=== PATIENT | male | born 1960 | race Caucasian/White ===

== ENCOUNTER → 2020-01-10 09:27 | Outpatient (BNVA) | payer MEDICARE, SELFPAY | PROVIDERS: PCP Family Medicine; Visit Provider Internal Medicine Rheumatology | DX: M05.79 Rheumatoid arthritis with rheumatoid factor of multiple sites without organ or systems involvement (principal); Z79.899 Other long term (current) drug therapy; Z11.59 Encounter for screening for other viral diseases; Z11.1 Encounter for screening for respiratory tuberculosis; E11.65 Type 2 diabetes mellitus with hyperglycemia; R64 Cachexia; F17.210 Nicotine dependence, cigarettes, uncomplicated; Z79.1 Long term (current) use of non-steroidal anti-inflammatories (NSAID); M06.9 Rheumatoid arthritis, unspecified | CPT/HCPCS: 36415; 71046; 73130; 73630; 80076; 82565; 85025; 85651; 86140; 86431; 86480; 86704; 99204 ==

== ENCOUNTER 2020-01-10 11:04 | Outpatient (CLI) | payer MEDICARE, SELFPAY ==
--- NOTE | 2020-01-10 11:27 | XR_ITS ---
WS: [id number] Right foot, 3 views, 01/10/2020 Clinical Data: rheumatoid arthritis Comparison: None. Findings: No fractures or dislocations are seen. No bone destruction or erosion is noted. The joint spaces and soft tissues are normal. No periarticular demineralization or calcifications are seen. XR/XR foot RT min 3V* [id number] Impression: Negative right foot.
--- NOTE | 2020-01-10 11:27 | XR_ITS ---
WS: [id number] PA and lateral chest, 01/10/2020 Clinical Data: rheumatoid arthritis Comparison: None. Findings: No nodules, masses or effusions are seen. The diaphragms are flattened. The heart is normal . The pulmonary vascularity is not remarkable. No pneumonia or pneumothorax is seen. XR/XR chest 2V* [id number] Impression: Hyperinflation.
--- NOTE | 2020-01-10 11:27 | XR_ITS ---
WS: [id number] Right hand, 3 views, 01/10/2020 Clinical Data: rheumatoid arthritis Comparison: None. Findings: No fractures or dislocations are seen. The soft tissues are unremarkable. The joint space s are normal No periarticular demineralization or calcifications are seen. XR/XR hand RT min 3V* [id number] Impression: Negative right hand.
--- NOTE | 2020-01-10 11:27 | XR_ITS ---
WS: [id number] Left foot, 3 views, 01/10/2020 Clinical Data: rheumatoid arthritis Comparison: None. Findings: No fractures or dislocations are seen. No bone destruction or erosion is noted. The joint spaces and soft tissues are normal. There is a bunion at the head of the left first metatarsal. There is no periarticular demineralizatio n or calcifications. XR/XR foot LT min 3V* [id number] Impression: Small bunion at the head of the left first metatarsal.
--- NOTE | 2020-01-10 11:27 | XR_ITS ---
WS: [id number] Left hand, 01/10/2020 Clinical Data: rheumatoid arthritis Comparison: None. Findings: No fractures or dislocations are seen. The soft tissues are unremarkable. The joint spaces are normal There is slight flexion deformity at the left fifth PIP joint. No periarticular demineralization or c alcifications are seen. XR/XR hand LT min 3V* [id number] Impression: Negative left hand.
== END 2020-01-10 11:05 | disposition home or self-care (01) ==
LOC: RADWPI 11:07
PROVIDERS: PCP Family Medicine; Visit Provider Internal Medicine Rheumatology
DX: M06.9 Rheumatoid arthritis, unspecified (principal); M21.612 Bunion of left foot; Z11.59 Encounter for screening for other viral diseases; Z79.899 Other long term (current) drug therapy
CPT/HCPCS: 71046; 73130; 73630; 80076; 82565; 85025; 85651; 86140; 86431; 86480; 86704

== ENCOUNTER → 2020-07-01 13:58 | Outpatient (BNVA) | payer OTHER, MEDICAID, SELFPAY | PROVIDERS: PCP Family Medicine; Visit Provider Internal Medicine Rheumatology | DX: M05.79 Rheumatoid arthritis with rheumatoid factor of multiple sites without organ or systems involvement (principal); Z79.899 Other long term (current) drug therapy; R64 Cachexia; E11.65 Type 2 diabetes mellitus with hyperglycemia; Z79.1 Long term (current) use of non-steroidal anti-inflammatories (NSAID); F17.210 Nicotine dependence, cigarettes, uncomplicated; Z68.1 Body mass index [BMI] 19.9 or less, adult | CPT/HCPCS: 99214 ==

== ENCOUNTER → 2020-11-05 15:09 | Outpatient (BNVA) | payer MEDICARE, MEDICAID, SELFPAY | PROVIDERS: PCP Family Medicine; Visit Provider Internal Medicine Rheumatology | DX: M05.79 Rheumatoid arthritis with rheumatoid factor of multiple sites without organ or systems involvement (principal); Z79.899 Other long term (current) drug therapy; Z79.1 Long term (current) use of non-steroidal anti-inflammatories (NSAID); R64 Cachexia; Z68.1 Body mass index [BMI] 19.9 or less, adult; E11.65 Type 2 diabetes mellitus with hyperglycemia; Z79.4 Long term (current) use of insulin; Z71.89 Other specified counseling; F17.200 Nicotine dependence, unspecified, uncomplicated | CPT/HCPCS: 99214 ==

== ENCOUNTER → 2020-12-30 14:46 | Outpatient (BNVA) | payer MEDICARE, MEDICAID, SELFPAY | PROVIDERS: PCP Family Medicine; Visit Provider Internal Medicine Rheumatology | DX: M05.79 Rheumatoid arthritis with rheumatoid factor of multiple sites without organ or systems involvement (principal); Z79.899 Other long term (current) drug therapy | CPT/HCPCS: 80076; 82565; 85025; 86140 ==

== ENCOUNTER → 2021-01-27 14:14 | Outpatient (BNVA) | payer MEDICARE, MEDICAID, SELFPAY | PROVIDERS: PCP Family Medicine; Visit Provider Internal Medicine Rheumatology | DX: M05.79 Rheumatoid arthritis with rheumatoid factor of multiple sites without organ or systems involvement (principal); Z79.899 Other long term (current) drug therapy; Z79.52 Long term (current) use of systemic steroids; E11.65 Type 2 diabetes mellitus with hyperglycemia; Z79.4 Long term (current) use of insulin; R64 Cachexia; Z68.1 Body mass index [BMI] 19.9 or less, adult; Z71.89 Other specified counseling; F17.200 Nicotine dependence, unspecified, uncomplicated | CPT/HCPCS: 99214 ==

== ENCOUNTER → 2021-05-13 09:45 | Outpatient (BNVA) | payer MEDICARE, MEDICAID, SELFPAY | PROVIDERS: PCP Family Medicine; Visit Provider Internal Medicine Rheumatology | DX: M05.79 Rheumatoid arthritis with rheumatoid factor of multiple sites without organ or systems involvement (principal); Z79.899 Other long term (current) drug therapy; Z79.1 Long term (current) use of non-steroidal anti-inflammatories (NSAID); R64 Cachexia; Z68.1 Body mass index [BMI] 19.9 or less, adult; E11.9 Type 2 diabetes mellitus without complications; Z79.4 Long term (current) use of insulin; Z71.89 Other specified counseling; F17.210 Nicotine dependence, cigarettes, uncomplicated | CPT/HCPCS: 99214 ==

== ENCOUNTER → 2021-10-29 14:26 | Outpatient (BNVA) | payer MEDICARE, MEDICAID, SELFPAY | PROVIDERS: PCP Family Medicine; Visit Provider Internal Medicine Rheumatology | DX: M05.79 Rheumatoid arthritis with rheumatoid factor of multiple sites without organ or systems involvement (principal); Z79.899 Other long term (current) drug therapy; Z71.89 Other specified counseling; E11.65 Type 2 diabetes mellitus with hyperglycemia; R64 Cachexia; Z79.4 Long term (current) use of insulin; Z68.1 Body mass index [BMI] 19.9 or less, adult; Z79.1 Long term (current) use of non-steroidal anti-inflammatories (NSAID); F17.200 Nicotine dependence, unspecified, uncomplicated | CPT/HCPCS: 99214 ==

== ENCOUNTER → 2022-01-27 14:25 | Outpatient (BNVA) | payer MEDICARE, MEDICAID, SELFPAY | PROVIDERS: PCP Family Medicine; Visit Provider Internal Medicine Rheumatology | DX: M05.79 Rheumatoid arthritis with rheumatoid factor of multiple sites without organ or systems involvement (principal); Z79.899 Other long term (current) drug therapy; Z71.89 Other specified counseling; F17.200 Nicotine dependence, unspecified, uncomplicated; E11.9 Type 2 diabetes mellitus without complications; Z79.4 Long term (current) use of insulin; R64 Cachexia; Z68.1 Body mass index [BMI] 19.9 or less, adult; Z79.1 Long term (current) use of non-steroidal anti-inflammatories (NSAID) | CPT/HCPCS: 99214 ==

== ENCOUNTER → 2022-04-20 14:09 | Outpatient (BNVA) | payer MEDICARE, MEDICAID, SELFPAY | PROVIDERS: PCP Family Medicine; Visit Provider Internal Medicine Rheumatology | DX: M05.79 Rheumatoid arthritis with rheumatoid factor of multiple sites without organ or systems involvement (principal); Z79.899 Other long term (current) drug therapy; Z71.89 Other specified counseling; R64 Cachexia; E11.8 Type 2 diabetes mellitus with unspecified complications; Z79.4 Long term (current) use of insulin; Z72.0 Tobacco use | CPT/HCPCS: 99214 ==

== ENCOUNTER → 2022-07-20 14:19 | Outpatient (BNVA) | payer MEDICARE, MEDICAID, SELFPAY | PROVIDERS: PCP Family Medicine; Visit Provider Internal Medicine Rheumatology | DX: M05.79 Rheumatoid arthritis with rheumatoid factor of multiple sites without organ or systems involvement (principal); Z79.899 Other long term (current) drug therapy; Z71.89 Other specified counseling; R64 Cachexia; E11.8 Type 2 diabetes mellitus with unspecified complications; Z79.4 Long term (current) use of insulin; Z87.891 Personal history of nicotine dependence | CPT/HCPCS: 99214 ==

== ENCOUNTER → 2022-10-15 12:45 | Outpatient (BNVA) | payer MEDICARE, MEDICAID, SELFPAY | PROVIDERS: PCP Family Medicine; Visit Provider Internal Medicine Rheumatology | DX: M05.79 Rheumatoid arthritis with rheumatoid factor of multiple sites without organ or systems involvement (principal); Z79.899 Other long term (current) drug therapy; Z71.89 Other specified counseling; R64 Cachexia; Z68.1 Body mass index [BMI] 19.9 or less, adult; F17.200 Nicotine dependence, unspecified, uncomplicated; E11.9 Type 2 diabetes mellitus without complications; Z79.4 Long term (current) use of insulin; Z79.1 Long term (current) use of non-steroidal anti-inflammatories (NSAID) | CPT/HCPCS: 73502; 99214 ==

== ENCOUNTER → 2023-01-14 13:48 | Outpatient (BNVA) | payer MEDICARE, MEDICAID, SELFPAY | PROVIDERS: PCP Family Medicine; Visit Provider Internal Medicine Rheumatology | DX: Z79.899 Other long term (current) drug therapy (principal); M05.79 Rheumatoid arthritis with rheumatoid factor of multiple sites without organ or systems involvement; Z71.89 Other specified counseling; R64 Cachexia | CPT/HCPCS: 99214 ==

== ENCOUNTER → 2023-10-04 13:51 | Outpatient (BNVA) | payer MEDICARE, MEDICAID, SELFPAY | PROVIDERS: PCP Family Medicine; Visit Provider Internal Medicine Rheumatology | DX: M05.79 Rheumatoid arthritis with rheumatoid factor of multiple sites without organ or systems involvement (principal); Z79.899 Other long term (current) drug therapy; Z71.85 Encounter for immunization safety counseling; R64 Cachexia; E11.8 Type 2 diabetes mellitus with unspecified complications; Z88.2 Allergy status to sulfonamides; Z72.0 Tobacco use; Z68.1 Body mass index [BMI] 19.9 or less, adult | CPT/HCPCS: 99214 ==

== ENCOUNTER → 2024-03-16 14:37 | Outpatient (BNVA) | payer MEDICAID, MEDICARE, SELFPAY | PROVIDERS: PCP Family Medicine; Visit Provider Internal Medicine Rheumatology | DX: Z79.899 Other long term (current) drug therapy (principal); M05.79 Rheumatoid arthritis with rheumatoid factor of multiple sites without organ or systems involvement; Z71.89 Other specified counseling; R64 Cachexia | CPT/HCPCS: 99214 ==

== ENCOUNTER 2024-08-03 19:36 | Inpatient (IN) | payer MEDICARE, MEDICAID, SELFPAY ==
[2024-08-03 19:47] VITALS: BP 121/57; PULSE 104; RESP 16; TEMP 36.8; O2SAT 97; BMI 14.8
--- NOTE | 2024-08-03 20:04 | CTR_ITS ---
PROCEDURE INFORMATION: Exam: CTA Head With Contrast, Arteriography Exam date and time: 08/03/2024 8:06 PM Age: 64 years old Clinical indication: Stroke-like symptoms; Lt upper extremity and lt lower extremity weakness; Additional info: Left arm/leg weakness/paresthesia TECHNIQUE: Imaging protocol: Computed tomographic angiography of the head with contrast. Exam focused on the arteries. Computed tomographic angiography of the head with contrast. Exam focused on the arteries. AI vessel analysis not performed. 3D rendering (Not supervised by radiologist): MIP and/or 3D reconstructed images were created by the technologist. Radiation optimization: All CT scans at this facility use at least one of these dose optimization techniques: automated exposure control; mA and/or kV adjustment per patient size (includes targeted exams where dose is matched to clinical indication); or iterative reconstruction. Contrast material: OMNI 350; Contrast volume: 100 ml; Contrast route: INTRAVENOUS (IV); COMPARISON: CT head thrombolytic [id number] 08/03/2024 8:06 PM RADIATION DOSE METRICS: Total DLP (mGy-cm): 339.3 FINDINGS: ANTERIOR CIRCULATION: Right internal carotid artery: Atherosclerotic changes right internal carotid artery with mild stenosis. Right middle cerebral artery: No occlusion or significant stenosis. No aneurysm. Right anterior cerebral artery: No occlusion or significant stenosis. No aneurysm. Left internal carotid artery: Atherosclerotic changes left internal carotid artery with mild stenosis. Left middle cerebral artery: No occlusion or significant stenosis. No aneurysm. Left anterior cerebral artery: No occlusion or significant stenosis. No aneurysm. POSTERIOR CIRCULATION: Right vertebral artery: No occlusion or significant stenosis. No aneurysm. Left vertebral artery: No occlusion or significant stenosis. No aneurysm. Basilar artery: No occlusion or significant stenosis. No aneurysm. Right posterior cerebral artery: No occlusion or significant stenosis. No aneurysm. Left posterior cerebral artery: No occlusion or significant stenosis. No aneurysm. Right posterior communicating artery: There is a 2 mm infundibulum or small aneurysm of the right PCOM origin on series 6, image 247. Brain: No definite mass, mass effect, or midline shift. Cerebral ventricles: No ventriculomegaly. Paranasal sinuses: Owjey-[id number]-dyul-left maxillary sinus opacification present. Bones/joints: No acute fracture. Soft tissues: Unremarkable. PROCEDURE INFORMATION: Exam: CTA Neck With Contrast Exam date and time: 08/03/2024 8:06 PM Age: 64 years old Clinical indication: Stroke-like symptoms; Lt upper extremity and lt lower extremity weakness; Additional info: Left arm/leg weakness/paresthesia TECHNIQUE: Imaging protocol: Computed tomographic angiography of the neck with contrast. Exam focused on the cervical segments of the vasculature. 3D rendering (Not supervised by radiologist): MIP and/or 3D reconstructed images were created by the technologist. Radiation optimization: All CT scans at this facility use at least one of these dose optimization techniques: automated exposure control; mA and/or kV adjustment per patient size (includes targeted exams where dose is matched to clinical indication); or iterative reconstruction. Contrast material: OMNI 350; Contrast volume: 100 ml; Contrast route: INTRAVENOUS (IV); COMPARISON: CT head thrombolytic [id number] 08/03/2024 8:06 PM RADIATION DOSE METRICS: Total DLP (mGy-cm): 339.3 FINDINGS: Right common carotid artery: Mild stenosis distal right common carotid artery. Right internal carotid artery: No stenosis of the extracranial segment. No dissection or occlusion. Right external carotid artery: No visible occlusion. Left common carotid artery: Mild stenosis distal left common carotid artery. Left internal carotid artery: No stenosis of the extracranial segment. No dissection or occlusion. Left external carotid artery: No visible occlusion. Right vertebral artery: No stenosis. No dissection or occlusion. Left vertebral artery: No stenosis. No dissection or occlusion. Left subclavian artery: There is mild stenosis of the proximal left subclavian artery. Pharynx: Probable retention cyst right oropharynx measuring 5 mm on series 6, image 158. Thyroid: Left thyroid nodule measures 4 mm. Soft tissues: No significant soft tissue swelling. Bones/joints: No acute fracture. Degenerative disc disease with suspected severe spinal canal stenosis C5-C6. Bony demineralization. Trachea: There is debris in the trachea. Lungs: Emphysema in the lungs. Biapical lung scarring. CT/CT angio headneck* [id number] IMPRESSION: 1. No acute large vessel occlusion identified. 2. 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 IMPRESSION: 1. No occlusion or significant stenosis. 2. Degenerative disc disease with suspected severe C5-C6 spinal canal stenosis. This can be further assessed by MRI for follow-up. COMMENTS: Consistent with the [employer]'s Incidental Findings Committee white paper (J Am Deana Radiol 2015): In patients aged 35 years and older with an incidental thyroid nodule equal to or greater than 1.[address], MRI or extrathyroidal US, further evaluation with dedicated thyroid US is recommended for patients with normal life expectancy and without comorbidities. For smaller nodules without suspicious features, no further evaluation or follow up is recommended. REFERENCES: NASCET CRITERIA. The degree of stenosis in the cervical segment of the internal carotid artery is based on NASCET criteria. Normal is no stenosis. Mild is less than 50% stenosis. Moderate is 50-69% stenosis. Severe is 70% to 99% stenosis. Total occlusion is no detectable patent lumen.
--- NOTE | 2024-08-03 20:05 | CTR_ITS ---
PROCEDURE INFORMATION: Exam: CT Head Without Contrast Exam date and time: 08/03/2024 8:06 PM Age: 64 years old Clinical indication: Stroke-like symptoms; Lt upper extremity and lt lower extremity weakness; Additional info: C/O left upper and left lower ext weakness/numbness. Last known well time of 1600 hours. TECHNIQUE: Imaging protocol: Computed tomography of the head without contrast. Radiation optimization: All CT scans at this facility use at least one of these dose optimization techniques: automated exposure control; mA and/or kV adjustment per patient size (includes targeted exams where dose is matched to clinical indication); or iterative reconstruction. Other technique: STROKE PROTOCOL was implemented. COMPARISON: CT angio headneck* [id number] 08/03/2024 8:06 PM RADIATION DOSE METRICS: Total DLP (mGy-cm): 956.6 FINDINGS: Brain: No acute infarct. No hemorrhage. Unremarkable white matter for age. No midline shift. Cerebral ventricles: No ventriculomegaly. Paranasal sinuses: There is moderate mucosal thickening right maxillary sinus with possible air-fluid level. Mastoid air cells: No significant inflammation. Bones: No acute fracture. Soft tissues: Unremarkable. CT/CT head thrombolytic [id number] IMPRESSION: 1. No acute intracranial abnormality. 2. Acute right maxillary sinusitis changes. ASSESSMENT: ASPECTS ([place] Stroke Program Early CT Score) is 10.
--- NOTE | 2024-08-03 20:07 | W.ED.WEAKNES ---
HPI - Weakness General: Chief complaint: Weakness Stated complaint: left arm and leg numb Time Seen by Provider: 08/03/24 20:02 History of Present Illness: Patient is a previously well 64-year-old male seen for left-sided weakness and paresthesia. He states symptoms came on 2 hours ago at rest and that he noticed that his left arm from the shoulder to the fingers and left leg from the hip to the toes has minimally decreased sensation as well as weakness. This causes him some trouble walking but he is able to do so without assistance. He has never had this symptom before. He denies antecedent or concomitant headache, visual disturbance, nausea, vomiting, chest pain, shortness of breath, and has no other acute complaints. He is a type I diabetic and has high cholesterol but otherwise takes no other medications and has no history of heart disease. PFS ED PFSH: Medical History (Updated 08/03/24 @ 23:58 by Nathaniel Alvarez MD) Tobacco abuse Hyperlipidemia Insulin dependent diabetes mellitus Diabetes mellitus type 2, uncontrolled Immunization counseling High risk medication use Seropositive rheumatoid arthritis of multiple sites Cachexia BMI 14 Surgical History History of cholecystectomy Family History Other Cancer Diabetes Hypertension Stroke Denies family history of Rheumatoid arthritis Lupus CAD (coronary artery disease) Hyperlipidemia Chronic kidney disease (CKD) Lung disease Social History (Updated 08/03/24 @ 23:51 by Nathaniel Alvarez MD) Smoking and tobacco/nicotine status: current every day tobacco/nicotine user cigarettes Packs smoked per day: 1 Alcohol intake: current Alcohol intake frequency: holidays/special occasions only Substance/Drug Use: never Additional social history: Patient is disabled due to diabetes and frequent low blood sugars for the last 30 years he wants full CODE STATUS as discussed with him in the presence of his son Yousif and daughter Gregroia 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 Physical Exam Const: COMMON NORMALS: no acute distress HENMT: COMMON NORMALS: normocephalic and atraumatic HEAD & SCALP: normocephalic and atraumatic Eye: COMMON NORMALS: Equal, round and reactive pupils present, EOMs intact bilaterally and no scleral icterus PUPIL: Yes Equal, round and reactive pupils present Resp: COMMON NORMALS: normal respiratory effort and No retractions Cardio: COMMON NORMALS: regular rate, regular rhythm and No murmurs present (Cardio) RATE: regular rate RHYTHM: regular rhythm GI: COMMON NORMALS: Normal to inspection, nondistended, normoactive bowel sounds present, Soft to palpation and non-tender PALPATION: Yes Soft to palpation Neuro: OTHER: Very subtle weakness of the left upper and lower extremities compared with the right. I am unable to appreciate any sensory deficit of the left upper or lower extremities. No facial droop. No visual disturbance. Clear speech. Skin: COMMON NORMALS: no rashes or lesions noted GENERAL SKIN EXAM: no rashes or lesions noted Course Vital Signs: Vital signs: Vital Signs Temperature 98.3 F 08/03/24 19:47 Pulse Rate 76 08/04/24 04:34 Respiratory Rate 16 08/04/24 00:00 Blood Pressure 143/56 08/04/24 04:34 Pulse Oximetry 93 08/04/24 04:34 Oxygen Delivery Me thod Room Air 08/04/24 00:00 MDM - Weakness Medical Decision Making In summary, patient is a generally well-appearing 64-year-old male from home seen for acute onset left upper and lower extremity weakness and paresthesias. On my exam, NIH score is only 2. I spoke with on-call neurology who agrees he is not a candidate for thrombolytics given his low NIH score. CT head and CTA head and neck both show no evidence of acute infarct or other abnormality. He will be admitted to the hospitalist service for further workup including MRI, ultrasound of the carotids, and echocardiogram. He is agreeable to the plan. Lab Data 08/03/24 20:04 08/03/24 20:04 Radiology Impressions Head/Neck CTA 08/03/24 20:04 IMPRESSION: 1. No acute large vessel occlusion identified. 2. 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 IMPRESSION: 1. No occlusion or significant stenosis. 2. Degenerative disc disease with suspected severe C5-C6 spinal canal stenosis. This can be further assessed by MRI for follow-up. COMMENTS: Consistent with the [employer]'s Incidental Findings Committee white paper (J Am Deana Radiol 2015): In patients aged 35 years and older with an incidental thyroid nodule equal to or greater than 1.[address], MRI or extrathyroidal US, further evaluation with dedicated thyroid US is recommended for patients with normal life expectancy and without comorbidities. For smaller nodules without suspicious features, no further evaluation or follow up is recommended. REFERENCES: NASCET CRITERIA. The degree of stenosis in the cervical segment of the internal carotid artery is based on NASCET criteria. Normal is no stenosis. Mild is less than 50% stenosis. Moderate is 50-69% stenosis. Severe is 70% to 99% stenosis. Total occlusion is no detectable patent lumen. ADDENDUM: 08/03/242110 THIS REPORT CONTAINS FINDINGS THAT MAY BE CRITICAL TO PATIENT CARE. The findings were verbally communicated via telephone conference with NELLA Marroquin at 9:05 PM CDT on 08/03/2024. The findings were acknowledged and understood. Head CT 08/03/24 20:05 IMPRESSION: 1. No acute intracranial abnormality. 2. Acute right maxillary sinusitis changes. ASSESSMENT: ASPECTS ([place] Stroke Program Early CT Score) is 10. ADDENDUM: 08/03/242029 Findings were discussed with NELLA Marroquin at 08/03/2024 8:28 PM CDT. Carotid Doppler Study 08/04/24 00:10 IMPRESSION: No significant carotid arterial stenosis. REFERENCES: SRU CRITERIA. The degree of internal carotid artery stenosis is based on criteria defined by the Society of Radiologists in Ultrasound (SRU). Normal is no stenosis. Mild is less than 50% stenosis. Moderate is 50-69% stenosis. Severe is greater than 69% stenosis to near occlusion. Near occlusion is a markedly narrowed lumen. Total occlusion is no detectable patent lumen. Laboratory Results WBC 6.45 10^3/uL (3.29-11.43) 08/03/24 20:04 RBC 4.68 10^6/uL (3.85-5.65) 08/03/24 20:04 Hgb 13.60 g/dL (11.27-16.99) 08/03/24 20:04 Hct 40.2 % (37-53) 08/03/24 20:04 MCV 85.9 fl (82-101) 08/03/24 20:04 MCH 29.1 pg (27-33) 08/03/24 20:04 MCHC 33.8 g/dL (30-55) 08/03/24 20:04 RDW 12.6 % (12.1-15.1) 08/03/24 20:04 Plt Count 193 10^3/cmm (157-399) 08/03/24 20:04 MPV 11.7 fL (7.4-10.4) H 08/03/24 20:04 Neut % (Auto) 57.9 % 08/03/24 20:04 Lymph % (Auto) 30.5 % 08/03/24 20:04 [place] % (Auto) 8.7 % 08/03/24 20:04 Eos % (Auto) 1.6 % 08/03/24 20:04 Baso % (Auto) 1.1 % 08/03/24 20:04 Neut # (Auto) 3.74 10^3/uL (1.8-7.7) 08/03/24 20:04 Lymph # (Auto) 2.0 10^3/uL (0.8-4.8) 08/03/24 20:04 [place] # (Auto) 0.6 10^3/uL (0.2-0.9) 08/03/24 20:04 Eos # (Auto) 0.1 10^3/uL (0.0-0.8) 08/03/24 20:04 Baso # (Auto) 0.1 10^3/uL (0.0-0.1) 08/03/24 20:04 Nucleated RBC % (auto) 0 % 08/03/24 20:04 Nucleated RBCs # 0.0 /100WBC 08/03/24 20:04 PT 11.90 SECONDS (12.1-14.9) L 08/03/24 20:04 INR 0.82 (0.8-1.2) 08/03/24 20:04 APTT 26.4 SECONDS (23.9-36.7) 08/03/24 20:04 Sodium 136 mmol/L (136-145) 08/03/24 20:04 Potassium 4.3 mmol/L (3.5-5.1) 08/03/24 20:04 Chloride 99 mmol/L (98-107) 08/03/24 20:04 Carbon Dioxide 24 mmol/L (22-29) 08/03/24 20:04 Anion Gap 17.3 (5-19) 08/03/24 20:04 BUN 18 mg/dL (8-23) 08/03/24 20:04 Creatinine 1.0 mg/dL (0.7-1.2) 08/03/24 20:04 GFR Calculation 75.5 mL/min (90-130) L 08/03/24 20:04 Glucose 393 mg/dL (65-115) H 08/03/24 20:04 POC Glucose 375 mg/dL (70-110) H 08/04/24 00:26 Calculated Osmolality 300 mOsm/kg (285-295) H 08/03/24 20:04 Calcium 8.8 mg/dL (8.5-10.5) 08/03/24 20:04 Total Bilirubin 0.4 mg/dL (0.15-1.2) 08/03/24 20:04 AST 13 U/L (0-40) 08/03/24 20:04 ALT 11 U/L (0-41) 08/03/24 20:04 Alkaline Phosphatase 140 U/L (40-130) H 08/03/24 20:04 Total Protein 7.0 g/dL (6.6-8.7) 08/03/24 20:04 Albumin 4.0 g/dL (3.5-5.2) 08/03/24 20:04 Globulin 3.0 g/dL (1.3-4.6) 08/03/24 20:04 Urine Color Yellow (Yellow) 08/03/24 20:46 Urine Appearance Clear (CLEAR) 08/03/24 20:46 Urine pH 6.5 (5-7) 08/03/24 20:46 Ur Specific H[place]aw 1.070 (1.005-1.030) H 08/03/24 20:46 Urine Protein Trace (Negative) A 08/03/24 20:46 Urine Glucose (UA) 2+ (Normal) H 08/03/24 20:46 Urine Ketones Negative (Negative) 08/03/24 20:46 Urine Blood Negative (Negative) 08/03/24 20:46 Urine Nitrate Negative (Negative) 08/03/24 20:46 Urine Bilirubin Negative (Negative) 08/03/24 20:46 Urine Urobilinogen 1.0 mg/dL (Negative) 08/03/24 20:46 Ur Leukocyte Esterase Negative (Negative) 08/03/24 20:46 Urine RBC 0-2 /hpf (0-2) 08/03/24 20:46 Urine WBC 0-5 /hpf (0-5) 08/03/24 20:46 Ur Squamous Epith Cells 0-5 /hpf (0-5) 08/03/24 20:46 Amorphous Sediment Not Reportable 08/03/24 20:46 Urine Bacteria None seen /hpf (NONE) 08/03/24 20:46 Hyaline Casts 3.30 /lpf 08/03/24 20:46 Urine Opiates Screen Negative ng/mL (Negative) 08/03/24 20:46 Ur Barbiturates Screen Negative ng/mL (Negative) 08/03/24 20:46 Ur Phencyclidine Scrn Negative ng/mL (Negative) 08/03/24 20:46 Ur Amphetamines Screen Negative ng/mL (Negative) 08/03/24 20:46 U Benzodiazepines Scrn Negative ng/mL (Negative) 08/03/24 20:46 Urine Cocaine Screen Negative ng/mL (Negative) 08/03/24 20:46 U Marijuana (THC) Screen Negative ng/mL (Negative) 08/03/24 20:46 All radiology interpretation(s) finalized by discharge EKG Data EKG 1: Interpretation: Time?2019?sinus rhythm, rate of 89, no ST segment elevation or depression, no T wave inversions, intervals within normal limits. 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 Fwd Related Data Home Medications ?Medication ?Instructions ?Recorded ?Confirmed acetaminophen 650 mg 650 mg PO Q12H 01/10/20 03/16/24 tablet,extended release (Arthritis Pain Relief (acetaminophen) ER) aspirin 81 mg tablet,delayed 81 mg PO DAILY 01/10/20 03/16/24 release (Adult Aspirin Regimen) ezetimibe 10 mg tablet (Zetia) 10 mg PO DAILY 01/10/20 03/16/24 Previous Rx's ?Medication ?Instructions ?Recorded diclofenac sodium 1 % topical gel 2 g topical QID #100 grams 07/20/22 certolizumab pegol 400 mg/2 mL 200 mg SUBCUT .B37tgse #2 ea 03/16/24 (200 mg/mL x2) subcutaneous syringe kit (Cimzia) hydroxychloroquine 200 mg tablet 200 mg PO DAILY #90 tabs 03/16/24 leflunomide 20 mg tablet 20 mg PO DAILY #90 tabs 03/16/24 prednisone 5 mg tablet 5 mg PO DAILY #90 tabs 03/16/24 Allergies Allergy/AdvReac Type Severity Reaction Status Date / Time sulfamethoxazole (From Allergy rash Verified 03/16/24 15:06 Bactrim) trimethoprim (From Bactrim) Allergy rash Verified 03/16/24 15:06 NIH stroke score NIHSS Level Of Consciousness - 1a: 0 Level Of Consciousness Questions - 1b: Both Correct Level Of Consciousness Commands - 1c: Both Correct Best Gaze - 2: Normal Visual Rodriguez - 3: No Visual Loss Facial Palsy - 4: Normal Motor Arm Right - 5: No Drift Motor Arm Left - 5: Drift Motor Leg Right - 6: No Drift Motor Leg Left - 6: Drift Limb Ataxia - 7: Absent Sensory - 8: Normal Best Language - 9: No Aphasia Dysarthia - 10: Normal Extinction And Inattention - 11: 0 Score Total Score: 2
[2024-08-03] MEDS: iohexol 350 mg/mL 500 mL Btl (per mL) IV (20:09)
[2024-08-03 20:13] LABS: Basophils # 0.1 10^3/uL (0.0-0.1); Basophils % 1.1 %; Eosinophils # 0.1 10^3/uL (0.0-0.8); Eosinophils % 1.6 %; Hematocrit 40.2 % (37-53); Lymphocytes % 30.5 %; Mean Corpuscular HGB Conc 33.8 g/dL (30-55); Mean Corpuscular Hemoglobin 29.1 pg (27-33); Mean Corpuscular Volume 85.9 fl (82-101); Mean Platelet Volume 11.7 fL (7.4-10.4); Monocytes # 0.6 10^3/uL (0.2-0.9); Monocytes % 8.7 %; Neutrophils # 3.74 10^3/uL (1.8-7.7); Neutrophils % 57.9 %; Nucleated Red Blood Cells % 0 %; Platelet Count 193 10^3/cmm (157-399); Red Blood Count 4.68 10^6/uL (3.85-5.65); Red Cell Distribution Width 12.6 % (12.1-15.1); White Blood Count 6.45 10^3/uL (3.29-11.43)
--- NOTE | 2024-08-03 20:20 | ECG_ITS ---
[facility] Date: 2024-08-03 Pat Name: Sven Fuller Department: Room: Gender: Male Stump Blower: : 1960 Requested By: Omkar Meza Order Number: [id number] Reading MD: Measurements Intervals Gardner Rate: 89 P: 89 [place]: 161 QRS: 83 QRSD: 85 T: 80 QT: 337 QTc: 411 Interpretive Statements SINUS RHYTHM POSSIBLE RIGHT VENTRICULAR CONDUCTION DELAY [RSR (QR) IN V1/V2] MODERATE ST DEPRESSION [0.05+ mV ST DEPRESSION] No previous ECG available for comparison [email or web address]
[2024-08-03 20:23] LABS: INR 0.82 (0.8-1.2); Partial Thromboplastin Time 26.4 SECONDS (23.9-36.7)
[2024-08-03 20:27] VITALS: BP 158/75; PULSE 90; RESP 18; O2SAT 98
[2024-08-03 20:27] LABS: Alanine Aminotransferase 11 U/L (0-41); Alkaline Phosphatase 140 U/L (40-130); Anion Gap 17.3 (5-19); Aspartate Amino Transferase 13 U/L (0-40); Blood Urea Nitrogen 18 mg/dL (8-23); Calcium 8.8 mg/dL (8.5-10.5); Carbon Dioxide 24 mmol/L (22-29); Chloride 99 mmol/L (98-107); Creatinine Clr Calc Pharmacy 47.5389; Glomerular Filtration Rate 75.5 mL/min (90-130); Glucose 393 mg/dL (65-115); Osmolality Calculated 300 mOsm/kg (285-295); Potassium 4.3 mmol/L (3.5-5.1); Sodium 136 mmol/L (136-145); Total Bilirubin 0.4 mg/dL (0.15-1.2)
[2024-08-03 20:33] LABS: Glucose Point of Care 416 mg/dL (70-110)
[2024-08-03 20:49] VITALS: BP 135/81; PULSE 123; RESP 18; O2SAT 91
[2024-08-03 20:57] LABS: Bilirubin Urine Negative (Negative); Blood Urine Negative (Negative); Glucose Urine UA 2+ (Normal); Ketones Urine Negative (Negative); Leukocyte Esterase Urine Negative (Negative); Nitrate Urine Negative (Negative); Protein Urine Trace (Negative); Urine Appearance Clear (CLEAR); Urine Color Yellow (Yellow); pH Urine 6.5 (5-7)
[2024-08-03 21:00] VITALS: BP 121/67; PULSE 83; RESP 18; O2SAT 97
[2024-08-03 21:03] LABS: Add Urine Microscopic? YES; Bacteria Urine None Seen /hpf; RBC Urine 0-2 /hpf (0-2); Squamous Epithelial Cell Urine 0-5 /hpf (0-5); WBC Urine 0-5 /hpf (0-5)
[2024-08-03 21:05] LABS: Amphetamines Screen Urine Negative (Negative); Barbiturates Screen Urine Negative (Negative); Benzodiazepines Screen Urine Negative (Negative); Cocaine Screen Urine Negative (Negative); Opiate Screen Urine Negative (Negative); PCP Screen Urine Negative (Negative); THC Screen Urine Negative (Negative)
[2024-08-03 22:07] VITALS: BP 159/62; PULSE 77; RESP 18; O2SAT 99
[2024-08-03 23:33] VITALS: BP 176/75; PULSE 79; RESP 16; O2SAT 99
--- NOTE | 2024-08-03 23:46 | P.HP_ITS ---
Providers/Chief Complaint 2 Admitting Physician: Nathaniel Alvarez MD Primary Care Provider: Archana Ayala DO Chief Complaint: left arm and leg numb sudden 1 hr high bp recently History of Present Illness Sven Fuller is a 64 year old male with history of IDDM starting at age 27 is disabled lives alone. At 4 PM he noted left side was weaker and he was not walking well. He called his daughter at 630 and she came over at 645 and noticed that his left side did indeed seem weaker. Patient states that since being in the hospital the left arm has improved more than the left leg. Dr. Jonse and Dr. Dorman evaluated the patient and determined that he was not a candidate for thrombolytics. Patient tells me he occasionally has heart racing when he does physical activity but denies diagnosis of A-fib. He tells me his appetite is poor as an explanation of his thin weight Review of Systems 2 Narrative: General He has had 3 pounds weight loss reports poor p.o. intake denies fevers or chills Cardiovascular denies chest pain or ND admits to palpitations with activity and gets dizzy with activity denies leg edema Neuro denies history of stroke or seizure Respiratory no shortness of breath or wheezing he does have cough productive of clear phlegm but is a smoker GI some nausea but denies vomiting he does have diarrhea and constipation often negative for dysuria hematuria Psych denies mental health diagnosis Medications/Allergies Home Medications ?Medication ?Instructions ?Recorded ?Confirmed ?Last Taken ?Type acetaminophen 650 mg 650 mg PO Q12H 01/10/2011/30 Unknown History tablet,extended release (Arthritis Pain Relief (acetaminophen) ER) aspirin 81 mg tablet,delayed 81 mg PO DAILY 01/10/20 0 03/16/24 Unknown History release (Adult Aspirin Regimen) ezetimibe 10 mg tablet (Zetia) 10 mg PO DAILY 01/10/20 03/16/24 Unknown History diclofenac sodium 1 % topical gel 2 g topical QID #100 grams 07/20/22 03/16/24 Unknown Rx certolizumab pegol 400 mg/2 mL 200 mg SUBCUT .[id number] #2 ea 03/16/24 03/16/24 Unknown Rx (200 mg/mL x2) subcutaneous syringe kit (Cimzia) hydroxychloroquine 200 mg tablet 200 mg PO DAILY #90 t abs 03/16/24 03/16/24 Unknown Rx leflunomide 20 mg tablet 20 mg PO DAILY #90 tabs 11/3003/16/24 Unknown Rx prednisone 5 mg tablet 5 mg PO DAILY #90 tabs 03/1603/16/24 Unknown Rx Allergies Allergy/AdvReac Type Severity Reaction Status Date / Time sulfamethoxazole (From Allergy rash Verified 03/16/24 15:06 Bactrim) trimethoprim (From Bactrim) Allergy rash Verified 03/16/24 15:06 PFSH Acute 2 PFSH: Medical History (Updated 08/03/24 @ 23:58 by Nathaniel Alvarez MD) Tobacco abuse Hyperlipidemia Insulin dependent diabetes mellitus Diabetes mellitus type 2, uncontrolled Immunization counseling High risk medication use Seropositive rheumatoid arthritis of multiple sites Cachexia BMI 14 Surgical History History of cholecystectomy Family History Other Cancer Diabetes Hypertension Stroke Denies family history of Rheumatoid arthritis Lupus CAD (coronary artery disease) Hyperlipidemia Chronic kidney disease (CKD) Lung disease Social History (Updated 08/03/24 @ 23:51 by Nathaniel Alvarez MD) Smoking and tobacco/nicotine status: current every day tobacco/nicotine user cigarettes Packs smoked per day: 1 Alcohol intake: current Alcohol intake frequency: holidays/special occasions only Substance/Drug Use: never Additional social history: Patient is disabled due to diabetes and frequent low blood sugars for the last 30 years he wants full CODE STATUS as discussed with him in the presence of his son Yousif and daughter Gregoria 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: 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 Vitals/I&O/Wt Last Vital Signs Temp 98.3 F 08/03/24 19:47 Pulse 79 08/03/24 23:33 Resp 16 08/03/24 23:33 BP 176/75 08/03/24 23:33 Pulse Ox 99 08/03/24 23:33 O2 Del Method Room Air 08/03/24 23:33 Weight last 48 hrs Weight 44.452 kg Physical Exam 2 Narrative: General Well-developed thin cachectic male in no acute cardiopulmonary treks Oral Mallampati 2 upper lower dentures Neck no bruits CV regular rate and rhythm no loud murmurs Lungs clear to auscultation bilaterally Abdomen positive bowel sounds soft Calves no tenderness cords pretrip edema Neuro face is symmetric pupils equally round and reactive to light accommodation external ocular movements intact Motor 5/5 right hand para operator biceps triceps left side 5-/5 right leg lift 5/5 left side 5-/5 Speech is clear but patient's affect is pleasant but odd. It takes him a delay to answer questions. Sometimes it seems that he does not understand but then he gives an answer. Daughter states that they have had good conversations here and this is his baseline and conversing in comprehension. She states that her left leg has not recovered is much as the left hand has and both of these are diminished from his baseline Data 08/03/24 20:04 08/03/24 20:04 A&P Assessment and plan (1) Stroke: Will give a statin. Will ask pharmacy to evaluate whether there is a conflict of statin with his other medications. Patient denies allergy to statin and states he is only allergic to Bactrim. It is unclear to me why he is not on a statin. He has hypertension and hyperlipidemia and tobacco abuse (2) Insulin dependent diabetes mellitus: Give Tresiba equivalent Lantus 22 units nightly start high-sensitivity low sliding scale insulin and give 5 units prandial Humalog with with meals. I started Glucerna and will ask the dietitian to see him (3) Hyperlipidemia: Start statin continue ezetimibe (4) Cachexia: Needs to see a dietitian. Further workup for cachexia by his primary care physician recommended (5) Tobacco abuse: Patient is counseled that he should quit smoking. Start nicotine patch PDMP PDMP Reviewed: Not Reviewed Attestations 2 Medical Necessity Statement*: Patient with mild stroke symptoms somewhat resolving. Anticipate discharge tomorrow after MRI and carotid Dopplers Coding Level of Care Code 55103 Diagnoses Stroke I63.9 Insulin dependent diabetes mellitus Hyperlipidemia E78.5 Cachexia R64 Tobacco abuse Z72.0 Time Spent (min) 70
[2024-08-04] VITALS (9 sets, daily range): BP systolic 108–176; BP diastolic 56–75; PULSE 71–102; RESP 16–18; TEMP 36.5–36.6; O2SAT 93–100; BMI 14.6
--- NOTE | 2024-08-04 00:10 | USR_ITS ---
PROCEDURE INFORMATION: Exam: US Duplex Bilateral Extracranial Arteries; Complete; Carotid Arteries Exam date and time: 08/04/2024 12:22 AM Age: 64 years old Clinical indication: Hemiplegia and hemiparesis; Nondominant left side; Additional info: Left arm and leg weakness and carotid plaque TECHNIQUE: Imaging protocol: Real-time duplex ultrasound scan of the bilateral extracranial arteries combining sousa scale, color Doppler and spectral waveform analysis with image documentation. Complete exam. Exam focused on the carotid arteries. COMPARISON: CT angio headneck* [id number] 08/03/2024 8:06 PM FINDINGS: Right common carotid artery: Unremarkable. No occlusion or stenosis. Waveforms are normal. Right internal carotid artery: Unremarkable. No occlusion or stenosis. Waveforms are normal. Right ICA/CCA ratio: Within normal limits. Right external carotid artery: No stenosis in the origin. Right vertebral artery: Unremarkable. Antegrade flow. Left common carotid artery: Unremarkable. No occlusion or stenosis. Waveforms are normal. Left internal carotid artery: Unremarkable. No occlusion or stenosis. Waveforms are normal. Left ICA/CCA ratio: Within normal limits. Left external carotid artery: No stenosis in the origin. Left vertebral artery: Unremarkable. Antegrade flow. US/CV carotid duplex BI* [id number] IMPRESSION: No significant carotid arterial stenosis. REFERENCES: SRU CRITERIA. The degree of internal carotid artery stenosis is based on criteria defined by the Society of Radiologists in Ultrasound (SRU). Normal is no stenosis. Mild is less than 50% stenosis. Moderate is 50-69% stenosis. Severe is greater than 69% stenosis to near occlusion. Near occlusion is a markedly narrowed lumen. Total occlusion is no detectable patent lumen.
--- NOTE | 2024-08-04 00:10 | MRR_ITS ---
PROCEDURE INFORMATION: Exam: MR Head Without Contrast Exam date and time: 08/04/2024 6:48 AM Age: 64 years old Clinical indication: Weakness, extremity; Left arm and leg numbness and weakness; Additional info: Stroke left arm and leg weakness TECHNIQUE: Imaging protocol: Magnetic resonance imaging of the head without contrast. COMPARISON: CT angio headneck* [id number] 08/03/2024 8:06 PM FINDINGS: Brain: 6.5 mm focus of restricted diffusion within the right posterolateral jarocho in keeping with acute infarction. No acute intracranial hemorrhage. No masses or mass effect. No midline shift. No abnormal extra-axial collections. Cerebral ventricles: Normal. No ventriculomegaly. Bones: Unremarkable. Paranasal sinuses: Small nonspecific air-fluid levels in the maxillary sinuses. Mastoid air cells: Normal as visualized. No mastoid effusion. Orbital cavities: Unremarkable. Soft tissues: Unremarkable. MR/MR head wo con* [id number] IMPRESSION: 6.5 mm focus of restricted diffusion within the right posterolateral jarocho in keeping with acute infarction. Mild chronic small-vessel ischemic changes.
[2024-08-04 00:29] LABS: Glucose Point of Care 375 mg/dL (70-110)
[2024-08-04] MEDS: clopidogrel 75 mg Tablet PO ×2 (00:38→09:28)
[2024-08-04] MEDS: insulin lispro 100 unit/1 mL SUBCUT ×3 (00:39→18:26)
[2024-08-04 07:11] LABS: Glucose Point of Care 45 mg/dL (70-110)
--- NOTE | 2024-08-04 07:13 | PC.NURSE ---
THIS NURSE WENT TO CHECK PT BLOOD GLUCOSE AFTER HE RETURNED FROM MRI. BLOOD GLUCOSE 45. PER PROTOCOL, 8OZ ORANGE JUICE GIVEN DUE TO PT BEING ALERT.
[2024-08-04] MEDS: enoxaparin 40 mg/0.4 mL Syringe SUBCUT (07:30)
--- NOTE | 2024-08-04 07:35 | PC.NURSE ---
PT BLOOD GLUCOSE 73 AFTER 8 OZ ORANGE JUICE. SLIDING SCALE INSULIN NOT INDICATED AT THIS TIME.
--- NOTE | 2024-08-04 07:40 | PC.PHAR ---
Pt states he has a fast acting insulin Humalog-will call pharmacy when they open and get the order.08/04/24
[2024-08-04 07:58] LABS: Glucose Point of Care 73 mg/dL (70-110)
[2024-08-04 08:38] LABS: HIV 1 & 2 Antibody Non-Reactive (Non-Reactiv); HIV 1 & 2 Antigen Non-Reactive (Non-Reactiv)
[2024-08-04 09:04] LABS: Hepatitis A Antibody IgM Non-Reactive (Nonreactive); Hepatitis B Core IgM Non-Reactive (Nonreactive); Hepatitis B Surface Antigen Non-Reactive (Nonreactive); Hepatitis C Virus Antibody Non-Reactive (Nonreactive)
--- NOTE | 2024-08-04 09:12 | PC.SOCIAL ---
IMM Update pg 2 of IMM Updated and reviewed w/ patient. Copy provided and copy dated, initialed and placed in chart.
[2024-08-04] MEDS: aspirin 81 mg EC Tablet PO (09:28)
[2024-08-04] MEDS: ezetimibe 10 mg Tablet PO (09:29)
[2024-08-04] MEDS: hydroxychloroquine 200 mg Tablet PO (09:29)
[2024-08-04] MEDS: acetaminophen 325 mg Tablet 650 MG PO ×2 (09:29→18:26)
[2024-08-04] MEDS: predniSONE 5 mg Tablet PO (09:29)
[2024-08-04] MEDS: nicotine 21 mg Patch 1 PATCH TRANSDERMA (09:30)
[2024-08-04 12:28] LABS: Glucose Point of Care 334 mg/dL (70-110)
[2024-08-04 12:31] LABS: Estmated Average Glucose 237; Hemoglobin A1C 9.9 % (4.0-6.0)
--- NOTE | 2024-08-04 16:25 | P.PN_ITS ---
Subjective 2 Subjective: Patient was seen this morning, he is alert oriented x 3, following all commands, does report numbness numbness left upper and left lower extremity, at times trouble coordinating, no productive aphasia and receptive aphasia, no visual deficits, no slurring of his words, he reports to be that he is always been thin, no falls, he is an active smoker Vitals/I&O/Wt Last Vital Signs Temp 97.8 F 08/04/24 15:24 Pulse 102 H 08/04/24 15:24 Resp 16 08/04/24 15:24 BP 112/71 08/04/24 15:24 Pulse Ox 98 08/04/24 15:24 O2 Del Method Room Air 08/04/24 15:24 08/04/24 08/04/24 08/04/24 06:59 14:59 22:59 Intake Total 237 / 237 Balance 237 / 237 Weight last 48 hrs Weight 44.452 kg Physical Exam 2 Const: COMMON NORMALS: no acute distress and patient oriented x3 Eye: COMMON NORMALS: Equal, round and reactive pupils present and EOMs intact bilaterally PUPIL: Yes Equal, round and reactive pupils present Resp: COMMON NORMALS: normal respiratory effort, No retractions, No use of accessory muscles and clear to auscultation bilaterally AUSCULTATION: clear to auscultation bilaterally Cardio: COMMON NORMALS: regular rate, regular rhythm, S1 normal heart sound present and S2 normal heart sound present RATE: regular rate RHYTHM: r egular rhythm HEART SOUNDS: S1 normal heart sound present and S2 normal heart sound present GI: COMMON NORMALS: Normal to inspection, nondistended, normoactive bowel sounds present and non-tender Extremity: COMMON NORMALS: no pedal edema Neuro: COMMON NORMALS: patient oriented x3 OTHER: Left upper extremity strength slightly diminished compared to the right Numbness throughout left upper extremity Left lower extremity, good strength and equal bilaterally Reported numbness throughout left lower extremity [id number] abnormal on the left No facial droop, no slurring of his words, no receptive aphasia Psych: COMMON NORMALS: mental status grossly normal Skin: OTHER: Bilateral temporal muscle wasting, bilateral ribs, clavicles, fat pad thinning Data 08/03/24 20:04 08/03/24 20:04 A&P Assessment and plan (1) Stroke: (2) Insulin dependent diabetes mellitus: (3) Hyperlipidemia: (4) Cachexia: Needs to see a dietitian. Further workup for cachexia by his primary care physician recommended (5) Tobacco abuse: Patient is counseled that he should quit smoking. Start nicotine patch (6) Acute CVA (cerebrovascular accident): (7) Protein calorie malnutrition: Plan Acute CVA - Left-sided weakness, paresthesias MRI brain MR/MR head wo con* [id number] IMPRESSION: 6.5 mm focus of restricted diffusion within the right posterolateral jarocho in keeping with acute infarction. Mild chronic small-vessel ischemic changes. head ct CT/CT head thrombolytic [id number] IMPRESSION: 1. No acute intracranial abnormality. CTA heand and neck 2. Acute right maxillary sinusitis changes. CT/CT angio headneck* [id number] IMPRESSION: 1. No acute large vessel occlusion identified. 2. 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 IMPRESSION: 1. No occlusion or significant stenosis. 2. Degenerative disc disease with suspected severe C5-C6 spinal canal stenosis. This can be further assessed by MRI for follow-up -NIH stroke score 2 - Not a candidate for thrombolytics with low NIH stroke score - Plan - Neurochecks - NIH stroke scale - Allow for permissive hypertension treat if systolic blood pressure greater than 220 or diastolic greater than 120 -Telemetry monitoring - PT OT, speech therapy eval - Aspirin, statin, Plavix - Cardiac echo - Full code - Lovenox for DVT prophylaxis Low BMI, 14, monitor, protein calorie malnutrition History of smoking, smoking cessation counseling Type 2 diabetes mellitus - Lantus 20 units subcu a.m. - Low-dose sliding scale PDMP PDMP Reviewed: Not Reviewed Attestations 2 Medical Necessity Statement*: Patient requires hospitalization for acute CVA, inpatient, greater than 2 midnights Diagnoses Stroke I63.9 Insulin dependent diabetes mellitus Hyperlipidemia E78.5 Cachexia R64 Tobacco abuse Z72.0 Acute CVA (cerebrovascular accident) I63.9 Protein calorie malnutrition E46
[2024-08-04 17:11] LABS: Glucose Point of Care 395 mg/dL (70-110)
[2024-08-04] MEDS: atorvastatin 40 mg Tablet PO (20:02)
[2024-08-04 21:22] LABS: Glucose Point of Care 546 mg/dL (70-110); Glucose Point of Care 551 mg/dL (70-110)
[2024-08-04] MEDS: insulin lispro 100 unit/1 mL 20 UNIT SUBCUT (21:35)
[2024-08-04] MEDS: insulin glargine 100 units/1 mL 30 UNIT SUBCUT (22:57)
[2024-08-05] VITALS: BP 125/65; PULSE 74; RESP 17; TEMP 36.5; O2SAT 98
[2024-08-05 05:17] VITALS: BP 155/67; PULSE 79; RESP 16; TEMP 36.6; O2SAT 97
[2024-08-05] MEDS: enoxaparin 40 mg/0.4 mL Syringe SUBCUT (05:23)
[2024-08-05 05:26] LABS: Basophils # 0.1 10^3/uL (0.0-0.1); Basophils % 1.4 %; Eosinophils % 0.9 %; Hematocrit 37.9 % (37-53); Lymphocytes # 1.1 10^3/uL (0.8-4.8); Lymphocytes % 25.2 %; Mean Corpuscular HGB Conc 32.7 g/dL (30-55); Mean Corpuscular Hemoglobin 28.6 pg (27-33); Mean Corpuscular Volume 87.3 fl (82-101); Mean Platelet Volume 11.6 fL (7.4-10.4); Monocytes # 0.6 10^3/uL (0.2-0.9); Monocytes % 12.4 %; Neutrophils # 2.64 10^3/uL (1.8-7.7); Neutrophils % 59.4 %; Nucleated Red Blood Cells % 0 %; Platelet Count 145 10^3/cmm (157-399); Red Blood Count 4.34 10^6/uL (3.85-5.65); Red Cell Distribution Width 12.6 % (12.1-15.1); White Blood Count 4.44 10^3/uL (3.29-11.43)
[2024-08-05 05:47] LABS: Anion Gap 12.6 (5-19); Blood Urea Nitrogen 26 mg/dL (8-23); Calcium 9.1 mg/dL (8.5-10.5); Carbon Dioxide 27 mmol/L (22-29); Chloride 102 mmol/L (98-107); Creatinine Clr Calc Pharmacy 51.8514; Glomerular Filtration Rate 85.2 mL/min (90-130); Osmolality Calculated 287 mOsm/kg (285-295); Potassium 3.6 mmol/L (3.5-5.1); Sodium 138 mmol/L (136-145)
[2024-08-05 05:57] LABS: Glucose 32 mg/dL (65-115)
[2024-08-05 05:59] LABS: Glucose Point of Care 45 mg/dL (70-110)
[2024-08-05] MEDS: dextrose 10% 250 ML 1000 ML IV (06:01)
[2024-08-05 06:44] LABS: Glucose Point of Care 221 mg/dL (70-110)
[2024-08-05 07:46] VITALS: BP 135/68; PULSE 72; RESP 18; TEMP 36.4; O2SAT 100
[2024-08-05] MEDS: fluoxetine 20 mg Capsule 40 MG PO (08:56)
[2024-08-05] MEDS: predniSONE 5 mg Tablet PO (08:57)
[2024-08-05] MEDS: acetaminophen 325 mg Tablet 650 MG PO (08:57)
[2024-08-05] MEDS: clopidogrel 75 mg Tablet PO (08:58)
[2024-08-05] MEDS: ezetimibe 10 mg Tablet PO (08:58)
[2024-08-05] MEDS: nicotine 21 mg Patch 1 PATCH TRANSDERMA (08:58)
[2024-08-05] MEDS: aspirin 81 mg EC Tablet PO (08:58)
[2024-08-05] MEDS: insulin lispro 100 unit/1 mL SUBCUT (09:04)
--- NOTE | 2024-08-05 10:51 | PC.CHAP ---
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 [] Patient/Family/Request visit [] Outpatient visit [] Follow-up visit [] Physician referral [] Code/Alert [x] Routine visit [] Staff referral [] Actively dying [] Patient sleeping [] Family support [] [] Out of room [] Palliative care [] [] Receiving care in room [] Pre-surgical visit [] Trauma [] Long length of stay [] ICU visit [] Other: Relational/Emotional Strength [] Patient feels connected with others/family/visitors/staff [] Distress [] Loneliness/isolation [] Abandonment Spirituality of Patient [] Person of Razia [] Attends Latter Day of their Razia [] Believes in Prayer [] Reads Bible or Yazdanism materials [] There are Spiritual issues to be addressed Critical Care Nurse Interventions [] Prayer [] Active listening [] Non-anxious presence [] Spiritual/emotional support [] Crisis/trauma care [] Spiritual counseling [] Bereavement support [] Provided bereavement packet [] Provided Bible/devotional materials [] Provided toy/stuffed animal, coloring book to patient or family member [] Provided Communion [] Anointing/[place] [] Salvation [] Completed spiritual assessment [] Other: Impact on Illness or Injury [] Angry [] Fearful [] Anxious [] Often cries [] Exhaustion [] Unable to work [] Unable to attend christian [] Unable to walk/stand [] Unable to read [] Unable to drive [] Unable to eat/drink [] Unable to sleep [] Unable to be with family [] Patient intubated [] Other: Summary Time spent with patient
[2024-08-05 11:19] LABS: Glucose Point of Care 276 mg/dL (70-110)
[2024-08-05 11:55] VITALS: BP 157/74; PULSE 88; RESP 18; TEMP 36.6; O2SAT 98
--- NOTE | 2024-08-05 11:56 | USCV_ITS ---
Sven Fuller Age: 64 Gender: M : 1960 Exam Date: 08/05/2024 07:18 Ordering Phys: Jamie James MD Technologist: Jersey Whelan Exam Location: [facility] [place] Indication: cva BP: 155 / 67 HR: Rhythm: Sinus Technical Quality: Adequate MEASUREMENTS (Male / Female) Normal Values 2D ECHO LV Diastolic Diameter PLAX 2.9 cm 4.2 - 5.9 / 3.9 - 5.3 cm IVS Diastolic Thickness 1.1 cm 0.6 - 1.0 / 0.6 - 0.9 cm IVS Systolic Thickness 1.2 cm LVPW Diastolic Thickness 1.3 cm 0.6 - 1.0 / 0.6 - 0.9 cm LVPW Systolic Thickness 1.7 cm LVOT Diameter 1.7 cm LV Ejection Fraction 2D Teich 57.2 % LV Ejection Fraction MOD 4C 71.4 % LV Ejection Fraction MOD 2C 72.0 % LV Ejection Fraction 2C AL 72.6 % LA Diameter 3.0 cm RA Systolic Volume 4C AL 26.8 ml RA Systolic Volume 4C MOD 26.3 ml LA Sys Volume AL 22.2 cm cubed LA Sys Volume Index AL 15.5 cm cubed/m squared Aorta at Sinotubular Diameter 1.7 cm IVC Diameter 1.1 cm M-MODE LA Ao Ratio MM 1.3 AV Cusp Separation MM 1.4 cm FINDINGS Left Ventricle Right Ventricle Right Atrium Left Atrium Mitral Valve Aortic Valve Tricuspid Valve Pulmonic Valve Pericardium Aorta IVC CONCLUSIONS Limited echocardiogram performed with bubble study. LV systolic function is normal with EF of 65 to 70%. No regional wall motion abnormalities are seen. Valves are grossly normal. Doppler exam not performed. No evidence of intracardiac shunting Umair Bruno MD (Electronically Signed) Final Date: 05 Aug 2024 12:44 S
--- OUTSIDE RECORDS SUMMARY | 2024-08-05 13:25 | XMS_ITS | Clinical Summary ---
Author Organization [facility] Address [address] [place] [address] Phone Care Team Providers Care Loss Prevention Leader Name Role Phone Jamie, Archana L DO Primary Care Provider [phone] Allergies Active Allergy Reactions Criticality Noted Date Comments Sulfamethoxazole-Trimethoprim Hives High 2016 Medications aspirin (CHITO CHEWABLE) 81 mg Tablet, Chewable Take 81 mg by mouth daily. Active pravastatin (PRAVACHOL) 40 mg tabletIndications: Mixed hyperlipidemia TAKE ONE TABLET BY MOUTH LATE IN THE DAY- NEEDS APPT PRIOR TO ADDITIONAL REFILLS 90 Tablet 2 01/05/20 19 Active insulin aspart U-100 (NovoLOG U-100 Insulin aspart) 100 unit/mL vialIndications:Ty pe 1 diabetes mellitus without complication ([facility]/HCC) Sliding scale: 0-150 use 0 units, 151-250 use 4 units, 251-350 use 8 units, 351-450 use 12 units and call physician. 30 mL 4 01/05/20 19 Active Blood-Glucose Meter (BLOOD GLUCOSE MONITORING) KitIndications:Typ e 1 diabetes mellitus without complication (CMS/HCC) Check blood sugars TID. 1 Each 01/05/20 19 Active tadalafil (CIALIS) 20 mg tabletIndications: Erectile dysfunction, unspecified erectile dysfunction type Take 1 Tablet (20 mg) by mouth see administration instructions. Use 1-4 tablets prn prior to need. May do a partial fill. 10 Tablet 11 01/05/20 19 Active blood sugar diagnostic (Blood Glucose Test) StripIndications:T ype 1 diabetes mellitus without complication (CMS/HCC),Chronic pain of multiple joints Check blood sugars TID 300 Each 6 08/22/19 20 Active FLUoxetine (PROzac) 20 mg capsule TAKE ONE CAPSULE BY MOUTH DAILY 90 Capsule 4 12/04/19 20 Active hydrOXYchloroQUINE (Plaquenil) 200 mg tablet Take 1 Tablet (200 mg) by mouth 2 times daily. 180 Tablet 4 12/04/19 20 Active leflunomide (ARAVA) 10 mg tablet 02/09/20 Active meloxicam (MOBIC) 15 mg tablet Take 1 Tablet (15 mg) by mouth daily. 90 Tablet 1 02/13/20 20 Active flash glucose scanning reader (FreeStyle Francia 14 Day Goodman) Misc 1 Each by [facility]Non-Drug; Combo Route) route every 2 weeks. 2 Each 02/13/20 20 Active ezetimibe (ZETIA) 10 mg tabletIndications: Mixed hyperlipidemia TAKE ONE TABLET BY MOUTH DAILY 90 Tablet 4 05/16/19 Active Tresiba FlexTouch U-200 200 unit/mL (3 mL) pen syringeIndications :Type 1 diabetes mellitus without complication (CMS/HCC) INJECT 22 UNITS BY SUBCUTANEOUS INJECTION DAILY WITH BREAKFAST. 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 07/14/2020 Rheumatoid arthritis involvi ng multiple sites with positive rheumatoid factor 09/28/2019 Chronic pain of multiple joints 09/05/2019 Recurrent major depressive disorder, in full rem ission 09/05/2019 Erectile dysfunction 01/15/2017 Type 1 diabetes mellitus without complication Mixed hyperlipidemia 01/13/2017 Mild episode of recurrent major depressive disor dontrell 01/13/2017 Wrist fracture, left 12/23/2016 Immunizations Immunization Administration Dates Next Due (PNEUMOVAX 23)(50 YRS UP) PN EUMOCOCCAL POLYSACCHARIDE (PPV23) 0.5 ML, IM 01/04/2019 (SPIKEVAX) (12 YRS UP PRIMAR Y SERIES) COVID-19 VACCINE - MRNA-1273(PF) 100 MCG/0.5 ML IM SUSP 06/14/2020 INFLUENZA VACCINE QUADRIVALENT 3 YR UP PF IM ,01/05/2018 INFLUENZA VACCINE QUADRIVALENT 6 MOS UP PF IM ,01/05/2018 Influenza Seasonal Unspecified Formulation IM Influenza Vaccine Tri Split 4+ Im 01/05/2018 Family History Medical History Relation Name Comments Diabetes Mother Relation Name Status Comments Mother Alive Type II Social History Tobacco Use Types Packs/Day Years Used Date Smoking Tobacco: Every Day Cigarettes 1 25 Smokeless Tobacco: Never Tobacco Cessation:Ready to Q uit: No Alcohol Use Standard Drinks/Week Comments Yes 0 (1 standard drink = 0.6 oz pur e alcohol) occasional Sex and Gender Information Value Date Recorded Sex Assigned at Not on file Legal Sex Male 3:43 PM CDT Gender Identity Not on file Sexual Orientation Not on file Last Filed Vital Signs Vital Sign Reading Time Taken Comments Blood Pressure 120/62 07/02/2020 3:47 PM CDT Pulse 126 07/02/2020 3:47 PM CDT Temperature 37.2 C (99 F) 07/02/2020 3:47 PM CDT Respiratory Rate 18 02/13/2020 2:46 PM CELEBRITY [employer]F ENTREPRENEUR MEDIA PERSONALITY Oxygen Saturation 98% 07/02/2020 3:47 PM CDT Inhaled Oxygen Concentration - - Weight 45.9 kg (101 lb 3.2 oz) 07/02/2020 3:47 P M CDT Height 172.7 cm (5' 8 ) 07/02/2020 3:47 PM CDT Body Mass Index 15.39 07/02/2020 3:47 PM CDT Plan of Treatment Health Maintenance Due Date Last Done Comments FIT/ DNA Q 3 YEARS (AUTO ORDER) 1979 FIT/FOBT Q 1 YEAR (AUTO ORDER) 1979 FLEX SIG/CT COLONOGRAPHY Q 5 YEARS (AUTO ORDER) 1979 DTAP/TDAP/TD VACCINES (1 - Tdap) 02/15/1980 ZOSTER VACCINE (1 of 2) 02/15/1980 COLORECTAL CANCER SCREENING (AUTO ORDER) 2006 COLORECTAL SCREENING 2006 Colorectal Cancer Screening (AUTO ORDER) 2006 Colorectal Cancer Screening 2006 FIT-DNA Q 3 years 2006 FIT/FOBT Q 1 year 2006 Flex Sig/CT Colonography Q 5 years 2006 DIABETES MICROALBUMIN ANNUAL SCREEN 01/05/2020 01/04/2019, 10/15/2017, 10/15/2017, Additional history exists COVID-19 Vaccine (2 - Modern a risk series) 07/12/2020 06/14/2020 DIABETES HBA1C Q 6 MONTHS 12/26/20202020, 02/13/2020, 08/22/2019, Additional history exists RSV VACCINE (60+ or ) (1 - Risk 60-74 years 1-dose series) 2021 LDL CHOLESTEROL ANNUAL 06/26/2021 1, 02/13/2020, 08/22/2019, Additional history exists DIABETES ANNUAL FOOT EXAM 10/24/20212020, 10/15/2017, 10/15/2017 DIABETES ANNUAL RETINAL EXAM 07/14/202211/2021, 08/07/2020, 07/03/2014, Additional history exists INFLUENZA VACCINE (#1) 2023 0, 01/04/2019, 01/05/2018, Additional history exists Medicare [place] ([place]) Preventative Visit/Annual Wellness Visit 03/08/2024 12/04/2019, 01/04/2019 Procedures Procedure Name Priority Date/Time Associated Diagnosis Comments DIABETES EYE EXAM Routine 08/07/2020 LIPID PANEL Routine 06/26/2020 2:00 PM CDT Mixed hyperlipidemia Type 1 diabetes mellitus without complication (CMS/HCC) Rheumatoid arthritis involving multiple sites with positive rheumatoid factor (CMS/HCC) HEMOGLOBIN A1C Routine 06/26/2020 2:00 PM CDT Mixed hyperlipidemia Type 1 diabetes mellitus without complication (CMS/HCC) Rheumatoid arthritis involving multiple sites with positive rheumatoid factor (CMS/HCC) MICROALBUMIN/CREATI NINE RATIO, RANDOM UR Routine 01/04/2019 3:48 PM CDT Type 1 diabetes mellitus without complication (CMS/HCC) from Last 3 Months or Most Recently Relevant to Health Maintenance Results * DIABETES EYE EXAM (08/07/2020) us Abstract Spg Provider HEALTH MAINTENANCE Final R esult * (ABNORMAL) HEMOGLOBIN A1C (06/26/2020 2:00 PM CDT) HEMOGLOBIN A1C 9.2(H) See Comment % 06/26/2020 9:50 PM CDT [facility] EST. AVG GLUCOSE, A1C 217 mg/dL 06/26/2020 9:50 PM CDT [facility] Blood Venipuncture / Unknown 06/26/2020 2:00 PM CDT 06/26/2020 8:12 PM CDT Narrative [facility] - 06/26/2020 9:50 PM CDT HGB A1C INTERPRETATION NORMAL: <5.7% PRE-DIABETES: 5.7 - 6.4% DIABETES: 6.5% OR GREATER Falsely low A1C measurements can occur when: 1. Anemia and/or hemolytic anemia is present. 2. Hemoglobin variants present. 3. Renal failure. 4. Transfusion of blood product in the last 120 days. We recommend ordering a fructosamine test([id number]) to more accurately assess glycemic status if any of the above conditions are present. Archana Ayala DO CHEMISTRY ORDERABLES Final Result [facility] CLIA# [id number] [address] [place] [address] * LIPID PANEL (06/26/2020 2:00 PM CDT) CHOLESTEROL 139 <200 mg/dL 06/26/2020 9:46 PM CDT [facility] TRIGLYCERIDE 65 <150 mg/dL 06/26/2020 9:46 PM CDT [facility] HDL 47 40 - 59 mg/dL 06/26/2020 9:46 PM CDT [facility] LDL CALCULATED 79 <100 mg/dL 06/26/2020 9:46 PM CDT [facility] NON-HDL CHOLESTEROL 92 <130 mg/dL 06/26/2020 9:46 PM CDT [facility] Blood Venipuncture / Unknown 06/26/2020 2:00 PM CDT 06/26/2020 8:10 PM CDT [facility] - 06/26/2020 9:46 PM CDT TOTAL CHOLESTEROL mg/dL Desirable <200 Borderline high 200-239 High >=240 TRIGLYCERIDES mg/dL Normal <150 Borderline high 150-199 High 200-499 Very high >=500 HDL CHOLESTEROL mg/dL Low <40 Normal 40-59 Desirable >=60 NON HDL CHOLESTEROL mg/dL Optimal <130 Near Optimal 130-159 Borderline High 160-189 Very High >=190 CALCULATED LDL mg/dL LDL <70, OPTIMAL if have Atherosclerotic cardiovascular disease (ASCVD) or intermediate or higher (>7.5%) 10 year risk of ASCVD including most adults with diabetes. LDL <100, Optimal in adult patients with low (<7.5%) 10 year ASCVD risk LDL 100-160, Suboptimal LDL >160, High LDL >190, Very high ATPIII Guidelines Reference Ranges for Lipid Panels (NCEP/AMA) . Archana Ayala DO CHEMISTRY ORDERABLES Final Result [facility] [id number] [place] [address] * (ABNORMAL) MICROALBUMIN/CREATININE RATIO, RANDOM UR (01/04/2019 3:48 PM CDT) MICROALBUMIN, URINE <1.2 No Reference Range mg/dL 01/04/2019 8:17 PM CDT [facility] CREATININE, URINE 18.2(L) 40.0 - 278.0 mg/dL 01/04/2019 8:17 PM CDT [facility] Comment:Reference Range vari es with fluid intake and diet. Urine URINE SPECIMEN OBTAINED BY CLEAN CATCH PROCEDURE / Unknown Collection / Unknown 01/04/2019 3:48 PM CDT 01/04/2019 7:39 PM CDT Mohamud [facility] - 01/04/2019 8:17 PM CDT Condition Microalbumin/Creat ratio Normal Males <17 Normal Females <25 Microalbuminuria Males 17-299 Microalbuminuria Females 25-299 Overt proteinuria >=300 Unable to calculate urine microalbumin/creatinine ratio because urine microalbumin result is outside of reportable range. Beth Arciniega PROFESSOR OF GEOGRAPHY URINE ORDERABLES Final R esult [facility]# [id number] [place] [address] from Last 3 Months or Most Recently Relevant to Health Maintenance Insurance [place] [address] [place] [address] DUAL COMPLETE [facility] HMO [facility] Care Teams Loss Prevention Leader Relationship Specialty Start Date End Date Archana Ayala DO [address] [place] [id number] PCP - General Family Practice 01/13/17
--- OUTSIDE RECORDS SUMMARY | 2024-08-05 13:25 | XMS_ITS | Encounter Summary ---
Author Organization [facility] Address [address] [place] [address] Care Team Providers Care Junior Administrative Assistant Name Role Phone Archana Ayala DO Primary Care Provider Encounter Details Date Type Department Care Team (Late st Contact Info) Description 08/04/2024 Abstract [facility] Medicine [place] [address] [place] [address] Archana Ayala DO [address] [place] [address] Social History Tobacco Use Types Packs/Day Years Used Date Smoking Tobacco: Every Day Cigarettes Passive Smoke Exposure: Current Smokeless Tobacco: Never Alcohol Use Standard Drinks/Week Comments Yes 0 (1 standard drink = 0.6 oz pur e alcohol) Financial Resource Strain Answer Date R ecorded How hard is it for you to pa y for the very basics like food, housing, medical care, and heating? Patient declined 11/30/2022 Food Insecurity Answer Date Recorded In the past 12 months, have you worried that your food would run out before you had money to buy more? Patient declined 2022 In the past 12 months, did y ou run out of food and didn't have money to buy more? Patient declined 11/30/2022 Transportation Needs Answer Date Record ed In the past 12 months, has l ack of transportation kept you from medical appointments or from getting medications? 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 Gender Identity Not on file Sexual Orientation Not on file documented as of this encounter Plan of Treatment Upcoming Encounters Date Type Department Care Team (Late st Contact Info) Description 08/11/2024 1:00 PM CDT Office Visit [facility] [address] [place] [address] Penny Alvarez, [facility] [address] [place] [address] 11/07/2024 11:00 AM CDT Office Visit [facility] [address] [place] [address] Archana Ayala DO [address] [place] [address] documented as of this encounter Procedures Procedure Name Priority Date/Time Associated Diagnosis Comments PROTIME-INR Routine 08/03/2024 documented in this encounter Results * PROTIME-INR (08/03/2024) ABSTRACTED PROTIME 11.9 ABSTRACTED INR 0.82 Blood 08/03/2024 us Abstract Provider HEMATOLOGY ORDERABLES Final Re sult documented in this encounter Visit Diagnoses Not on filedocumented in this encounter Care Teams Junior Administrative Assistant Relationship Specialty Start Date End Date Archana Ayala DO [address] [place] [address] PCP - General 05/27/20 documented as of this encounter
--- OUTSIDE RECORDS SUMMARY | 2024-08-05 13:25 | XMS_ITS | Encounter Summary ---
Author Organization [facility] Address [address] [place] [address] Care Team Providers Care Building Energy Consultant Name Role Phone Jamie Archana Luigi BOWMAN Primary Care Provider [phone]- [phone] Reason for Referral * CT Scan (Routine) - Closed Specialty Diagnoses / Procedures Referred By Michelle collazo Referred To Contact Radiology Diagnoses Nodule of middle lobe of right lung Panlobular emphysema (CMS/HCC) Chronic cough Lung nodule Procedures CT CHEST W CONTRAST Penny Alvarez FNP [address] [place] [address] Phone: tel: fax: [facility] CT Scan [place] [address] [place] [address] Phone: tel: fax: Referral ID Status Reason Start Date Expiration Date V isits Requested Visits Authorized [id number] Closed [facility] View CTS to Schedule 07/17/2024 01/13/2025 1 1 Encounter Details Date Type Department Care Team (Late st Contact Info) Description 07/06/2024 Results Follow-Up 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 Gender Identity Not on file Sexual Orientation Not on file documented as of this encounter Plan of Treatment Upcoming Encounters Date Type Department Care Team (Late st Contact Info) Description 08/11/2024 1:00 PM CDT Office Visit [facility] [address] [place] [address] Penny Alvarez, CONVEYOR [employer] BAKERY WORKER [address] [place] [address] 11/07/2024 11:00 AM CDT Office Visit [facility] [address] [place] [address] Archana Ayala, DO [address] [place] [address] documented as of this encounter Results * CT CHEST W CONTRAST (07/21/2024 9:49 AM CDT) Anatomical Region Laterality Modality Chest Computed Tomogra phy 07/21/2024 9:36 AM CDT Impressions 07/21/2024 10:23 AM CDT IMPRESSION: 1. No highly concerning pulmonary nodules. 2. Tiny bilateral pulmonary nodules are likely benign. Recommend follow-up chest CT in one year. 3. Emphysema. Narrative 07/21/2024 10:23 AM CDT EXAM: CT scan of the chest with IV contrast. Contrast: IOPAMIDOL 61 % INTRAVENOUS SOLUTION (SINGLE USE VIAL) Given:75 mL One or more of the following dose reduction techniques were utilized: automated exposure control[AEC], adjustment of mA and/or KV according to patient size, use of iterative reconstruction technique, CT scan done according to ALARA or ALARA image gently. HISTORY: Abnormal xray - lung nodule, >= 1 cm COMPARISON: None FINDINGS: No highly concerning pulmonary nodules. 2 mm solid lateral left upper lobe 4 nodule. 2 mm solid central left upper lobe pulmonary nodule. 3 mm solid for nodule along the right minor fissure. No acute airspace opacities. No pneumothorax. No pleural effusion. No acute fractures. No central or segmental pulmonary emboli. No aortic dissection. No definite lymphadenopathy chest. Small scattered mucus plugging in both lungs. Centrilobular emphysema in both lungs. Coronary atherosclerotic calcifications. Cholecystectomy. Remainder unremarkable. Procedure Note Dave Pearce MD - 07/21/2024 EXAM: CT scan of the chest with IV contrast. Contrast: IOPAMIDOL 61 % INTRAVENOUS SOLUTION (SINGLE USE VIAL) Given:75 mL One or more of the following dose reduction techniques were utilized: automated exposure control[AEC], adjustment of mA and/or KV according to patient size, use of iterative reconstruction technique, CT scan done according to ALARA or ALARA image gently. HISTORY: Abnormal xray - lung nodule, >= 1 cm COMPARISON: None FINDINGS: No highly concerning pulmonary nodules. 2 mm solid lateral left upper lobe 4 nodule. 2 mm solid central left upper lobe pulmonary nodule. 3 mm solid for nodule along the right minor fissure. No acute airspace opacities. No pneumothorax. No pleural effusion. No acute fractures. No central or segmental pulmonary emboli. No aortic dissection. No definite lymphadenopathy chest. Small scattered mucus plugging in both lungs. Centrilobular emphysema in both lungs. Coronary atherosclerotic calcifications. Cholecystectomy. Remainder unremarkable. IMPRESSION: 1. No highly concerning pulmonary nodules. 2. Tiny bilateral pulmonary nodules are likely benign. Recommend follow-up chest CT in one year. 3. Emphysema. Penny Alvarez CONVEYOR LINE BAKERY WORKER CT ORDERABLES Final Resu lt documented in this encounter Visit Diagnoses Diagnosis Nodule of middle lobe of right lung- Primary Panlobular emphysema (CMS/HCC) Other emphysema Chronic cough Cough Lung nodule Solitary pulmonary nodule Nodule of middle lobe of right lung Panlobular emphysema (CMS/HCC) Other emphysema Chronic cough Cough Lung nodule Solitary pulmonary nodule documented in this encounter Care Teams Building Energy Consultant Relationship Specialty Start Date End Date Archana Ayala DO [address] [place] [address] PCP - General 05/27/20 documented as of this encounter
--- OUTSIDE RECORDS SUMMARY | 2024-08-05 13:25 | XMS_ITS | Clinical Summary ---
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 180 Tablet 4 12/04/19 20 Active lancetsIndications :Type 1 diabetes mellitus without complication ([facility]) Check blood sugars three times a day. 100 Each 3 01/23/20 21 Active predniSONE (DELTASONE) 5 mg tablet Take 5 mg by mouth daily. Active One Touch Delica 33 gauge 1 Each by See Admin Instructions route 3 times daily before meals. 10/14/19 22 Active flash glucose scanning reader (FreeStyle Francia 2 Jal) MiscIndications:Ty pe 1 diabetes mellitus without complication ([facility]) Use to monitor glucose continuously. 1 Each 10/23/19 22 Active aspirin (CHITO CHEWABLE) 81 mg Tablet, Chewable Take 81 mg by mouth daily. 11/29/19 17 Active Insulin [place], Disposable, (BD Ultra-Fine Mini Pen Needle) 31 gauge x 3/16 Needle USE TO INJECT INSULIN UP TO 5 TIMES DAILY NEEDED 100 Each 5 08/14/19 23 Active leflunomide (ARAVA) 20 mg Tablet Take 20 mg by mouth daily. 07/21/19 23 Active diclofenac sodium (VOLTAREN) 1 % gel Apply 2 Grams to affected area 4 times daily. 08/14/19 23 Active insulin lispro (HumaLOG KwikPen Insulin) 100 unit/mL pen syringe USE 3 TIMES A DAY PER SLIDING SCALE 0-150=0 UNITS;151-250=4 UNITS;251-350=8 UNITS;351-450= 12 UNITS 15 mL 6 11/28/19 23 Active ALPRAZolam (XANAX) 0.25 mg tabletIndications: Generalized anxiety disorder Take 1 Tablet (0.25 mg) by mouth nightly as needed for Anxiety. 20 Tablet 01/14/20 23 Active blood sugar diagnostic StripIndications:T ype 1 diabetes mellitus without complication (CMS/HCC) 1 Strip 3 times daily before meals. 300 Each 4 04/15/19 24 Active ezetimibe (ZETIA) 10 mg tabletIndications: Mixed hyperlipidemia Take 1 Tablet (10 mg) by mouth daily. 90 Tablet 3 03/17/19 25 Active flash glucose sensor (FreeStyle Francia 2 Sensor) KitIndications:Typ e 1 diabetes mellitus without complication (CMS/HCC) Inject 1 Each by subcutaneous injection every 2 weeks. Use to monitor glucose continuously. Replace sensor every 14 days. 6 Kit 4 03/31/19 25 Active FLUoxetine (PROzac) 20 mg capsule Take 2 Capsules (40 mg) by mouth daily. 180 Capsule 1 03/31/19 25 Active tadalafil (CIALIS) 5 mg tablet TAKE ONE TABLET BY MOUTH ONE TIME DAILY NEEDED FOR ERECTILE DYSFUNCTION 90 Tablet 4 06/02/19 25 Active insulin degludec (Tresiba FlexTouch U-200) 200 unit/mL pen syringeIndications :Type 1 diabetes mellitus without complication (CMS/HCC) INJECT 24 UNITS SUBCUTANEOUSLY ONCE DAILY WITH BREAKFAST 12 mL 06/02/19 25 Active etanercept (EnbreL SureLuisick) 50 mg/mL (1 mL) Pen InjectorIndication s:Rheumatoid arthritis involving multiple sites with positive rheumatoid factor (CMS/HCC) Inject 1 mL (50 mg) by subcutaneous injection every 7 days. 4 mL 6 06/14/19 25 Active losartan (COZAAR) 25 mg tabletIndications: Benign hypertension Take 1 Tablet (25 mg) by mouth daily. 100 Tablet 3 07/05/19 25 Active Hospital, Clinic, or Other Facility Administered Medication Ordered Dose Route Frequency Start Date End Date Status etanercept (ENBREL) pen injection 50 mgIndications:Rheumatoid arthritis involving multiple sites with positive rheumatoid factor (CMS/HCC) 50 mg subCUT EVERY 7 DAYS 07/13/2024 Active Active Problems Problem Noted Date Diagnosed Date Benign hypertension 07/04/2024 Panlobular emphysema 09/05/2023 Cigarette smoker 09/05/2023 Cigarette dependence 03/06/2023 Generalized anxiety disorder 12/06/2022 Moderate protein-calorie malnutrition 01/25/2022 Cortical age-related cataract of right eye 07/27 Benign prostatic hyperplasia without lower urinary tract symptoms 07/14/2020 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 [place] [address] Archana Ayala DO 08/04/2024 Orders Only [facility] [address] [place] [address] Provider, Abstract 07/27/2024 1:00 PM CDT Clinical Support [facility] [address] [facility] [place] [address] Rheumatoid arthritis involving multiple sites with positive rheumatoid factor (Primary Dx) 07/21/2024 8:37 AM CDT - 07/21/2024 11:59 PM CDT Hospital Encounter [facility] CT Scan [place] [address] [place] [phone] Penny Alvarez FNP Discharge Disposition: Home or Self Care 07/21/2024 Results Follow-Up [facility] [address] [facility] [place] [address] CHEST W CONTRAST 07/13/2024 1:15 PM CDT Clinical Support [facility] [address] [place] [address] Rheumatoid arthritis involving multiple sites with positive rheumatoid factor (Primary Dx) 07/06/2024 Results Follow-Up [facility] [address] [place] [address] Penny Alvarez FNP XR CHEST PA AND LATERAL 2 VW 07/04/2024 12:05 PM CDT - 07/04/2024 11:59 PM CDT Hospital Encounter [facility] [address] [place] [phone] Penny Alvarez FNP Discharge Disposition: Home or Self Care 07/04/2024 11:00 AM CDT Office Visit [facility] [address] [place] [address] Penny Alvarez FNP Panlobular emphysema (CMS/HCC) (Primary Dx); Benign hypertension 06/29/2024 1:00 PM CDT Clinical Support [facility] [address] [place] [address] Type 1 diabetes mellitus without complication (Primary Dx) 06/27/2024 10:20 AM CDT Office Visit [facility] [address] [place] [address] Penny Alvarez FNP Dehydration, mild (Primary Dx); Other specified hypotension; Fluctuating blood pressure 06/26/2024 Telephone [facility] [address] [place] [address] Archana Ayala DO Clinical Consult Before Scheduling 06/21/2024 Telephone [facility] [address] [place] [address] Archana Ayala DO Enbrel PA 06/15/2024 2:00 PM CDT Clinical Support [facility] [id number] [place] [address] Other usp (current) drug therapy (Primary Dx) 06/13/2024 Orders Only [facility] [address] [place] [address] Acrhana Ayala DO Rheumatoid arthritis involving multiple sites with positive rheumatoid factor ([facility]) (Primary Dx) 06/05/2024 Results Follow-Up [facility] [address] [place] [address] Archana Ayala DO TSH 06/01/2024 1:40 PM CDT Office Visit [facility] [address] [place] [address] Archana Ayala DO Type 1 diabetes mellitus without complication (Primary Dx); Encounter for colorectal cancer screening; Mixed hyperlipidemia; Rheumatoid arthritis involving multiple sites with positive rheumatoid factor ([facility]/HCC); Immunodeficiency due to treatment with immunosuppressive medication; Moderate protein-calorie malnutrition; Generalized anxiety disorder; Recurrent major depressive disorder, in full remission; Panlobular emphysema ([facility]); Cigarette dependence 05/24/2024 External Device Data STL ABSTRACTION Provider, Abstract 05/18/2024 2:00 PM CDT Clinical Support [facility] [address] [place] [address] Rheumatoid arthritis involving multiple sites with positive rheumatoid factor ([facility]/HCC) (Primary Dx); Osteoarthritis, unspecified osteoarthritis type, unspecified site 05/13/2024 External Device Data STL ABSTRACTION Provider, Abstract 05/12/2024 External Device Data STL ABSTRACTION Provider, Abstract 05/09/2024 External Device Data STL ABSTRACTION Provider, Abstract from Last 3 Months Immunizations Immunization Administration Dates Next Due (PNEUMOVAX 23)(50 YRS UP) PN EUMOCOCCAL POLYSACCHARIDE (PPV23) 0.5 ML, IM 01/04/2019 (SPIKEVAX) (12 YRS UP PRIMAR Y SERIES) COVID-19 VACCINE - MRNA-1273(PF) 100 MCG/0.5 ML IM SUSP 06/14/2020 INFLUENZA VACCINE QUADRIVALE NT 3 YR UP PF IM 01/04/2019,01/05/2018 INFLUENZA VACCINE QUADRIVALE NT 6 MOS UP PF IM 12/11/2022,12/25/2021,12/04/2019,01/04,01/05/2018 INFLUENZA VACCINE TRIVALENT SPLIT VIRUS, (6 MOS UP), 0.5ML (PF), IM 12/02/2023 Influenza Seasonal Unspecifi ed Formulation IM 12/27/2020,01/05/2018 Influenza Vaccine Tri Split 4+ Im 01/05/2018 Pneumococcal Polysaccharide Vacc 23-akash IM SCHIP 01/04/2019 Family History Medical History Relation Name Comments Diabetes Mother Relation Name Status Comments Mother Alive Type II Social History Tobacco Use Types Packs/Day Years Used Date Smoking Tobacco: Every Day Cigarettes Passive Smoke Exposure: Current Smokeless Tobacco: Never Tobacco Cessation:Ready to Q uit: Not Asked; Counseling Given: Yes Alcohol Use Standard Drinks/Week Comments Yes 0 [...] on file Legal Sex Male 6:56 AM [employer] Gender Identity Not on file Sexual Orientation Not on file Last Filed Vital Signs Vital Sign Reading Time Taken Comments Blood Pressure 152/90 07/04/2024 11:15 AM CDT Pulse 87 07/04/2024 10:57 AM CDT Temperature 36.9 C (98.4 F) 06/27/2024 10:27 AM CDT Respiratory Rate 18 07/04/2024 10:57 AM CDT Oxygen Saturation 96% 07/04/2024 10:57 AM CDT Inhaled Oxygen Concentration - - Weight 44.5 kg (98 lb) 07/04/2024 10:57 AM CDT Height 172.7 cm (5' 8 ) 07/04/2024 10:57 AM CDT Body Mass Index 14.9 07/04/2024 10:57 AM CDT Plan of Treatment Upcoming Encounters Date Type Department Care Team (Late st Contact Info) Description 08/11/2024 1:00 PM CDT Office Visit [facility] [address] [place] [phone] Penny Alvarez, LEAD SYSTEMS ANALYST [address] [place] [address] 11/07/2024 11:00 AM CDT Office Visit [facility] [address] [place] [address] Archana Ayala, DO [address] [place] [address] Health Maintenance Due Date Last Done Comments FIT/FOBT Q 1 YEAR (AUTO ORDER) 1979 DTAP/TDAP/TD VACCINES (1 - Tdap) 02/15/1980 ZOSTER VACCINE (1 of 2) 02/15/1980 DIABETES STATIN MANAGEMENT ( AUTO ORDER) 2001 COLORECTAL CANCER SCREENING (AUTO ORDER) 2006 COLORECTAL SCREENING 2006 FIT/FOBT Q 1 year 2006 Flex Sig/CT Colonography Q 5 years 2006 COVID-19 Vaccine (2 - Modern a risk series) 07/12/2020 06/14/2020 RSV VACCINE (60+ or ) (1 - Risk 60-74 years 1-dose series) 2021 DIABETES ANNUAL RETINAL EXAM 07/14/202211/2021, 08/07/2020, 08/07/2020, Additional history exists DIABETES ANNUAL FOOT EXAM 02/26/20242022, 10/24/2020, 10/15/2017 KHE uACR (Auto Order) 03/08/2024 05/27/2023 , 02/25/2023, 04/24/2022, Additional history exists Medicare Advantage ([place]) Preventative Visit/Annual Wellness Visit 03/08/2024 12/02/2023, 11/27/2022, 04/25/2021, Additional history exists Colorectal Cancer Screening 05/14/2024 FIT-DNA Q 3 years 05/14/2024 05/14/2021 FIT/ DNA Q 3 YEARS (AUTO ORDER) 05/22/2024 05/22/2021, 05/14/2021, 05/14/2021 DIABETES MICROALBUMIN ANNUAL SCREEN 05/26/2024 05/27/2023, 02/25/2023, 04/24/2022, Additional history exists DIABETES: A1C (Auto Order) 09/01/202406/01, 03/16/2024, 12/09/2023, Additional history exists DIABETES HBA1C Q 6 MONTHS 12/02/20242024, 03/16/2024, 12/09/2023, Additional history exists LDL CHOLESTEROL ANNUAL 06/01/2025 , 03/16/2024, 12/02/2023, Additional history exists Colorectal Cancer Screening (AUTO ORDER) 05/14/2026 FLEX SIG/CT COLONOGRAPHY Q 5 YEARS (AUTO ORDER) 05/14/2026 05/14/2021, 05/14/2021 INFLUENZA VACCINE Completed 12/02/2023, , 12/25/2021, Additional history exists KHE eGFR (Auto Order) Completed 08/03/2024 , 07/21/2024, 06/01/2024, Additional history exists Procedures Procedure Name Priority Date/Time Associated Diagnosis Comments COMPREHENSIVE METABOLIC PANEL Routine 08/03/2024 10:14 AM CDT PROTIME-INR Routine 08/03/2024 CT CHEST W CONTRAST Routine 07/21/2024 9 :49 AM CDT Nodule of middle lobe of right lung Panlobular emphysema (CMS/HCC) Chronic cough Lung nodule CREATININE Stat 07/21/2024 8:46 AM CDT XR CHEST PA AND LATERAL 2 VW Routine 07/04/2024 12:10 PM CDT Panlobular emphysema (CMS/HCC) LIPID PANEL Routine 06/01/2024 2:52 PM CDT Type 1 diabetes mellitus without complication HEMOGLOBIN A1C Routine 06/01/2024 2:52 PM CDT Type 1 diabetes mellitus without complication TSH Routine 06/01/2024 2:52 PM CDT Type 1 diabetes mellitus without complication COMPREHENSIVE METABOLIC PANEL Routine 06/01/2024 2:52 PM CDT Type 1 diabetes mellitus without complication CBC WITH DIFFERENTIAL Routine 06/01/2024 2:52 PM CDT Type 1 diabetes mellitus without complication MICROALBUMIN/CREATINI NE RATIO, RANDOM UR Routine 05/27/2023 4:35 PM CDT Type 1 diabetes mellitus without complication (CMS/HCC) DIABETES EYE EXAM Routine 07/14/2021 COLON CANCER SCREEN, STOOL DNA Routine 05/14/2021 7:15 PM [employer] Encounter for colorectal cancer screening DIABETES FOOT EXAM Routine 10/24/2020 from Last 3 Months or Most Recently Relevant to Health Maintenance Results * COMPREHENSIVE METABOLIC PANEL (08/03/2024 10:14 AM CDT) Only the most recent of2 resultswithin the time period is included. Blood us Abstract Provider CHEMISTRY ORDERABLES Final Res ult * PROTIME-INR (08/03/2024) ABSTRACTED PROTIME 11.9 ABSTRACTED INR 0.82 Blood 08/03/2024 us Abstract Provider HEMATOLOGY ORDERABLES Final Re sult * CT CHEST W CONTRAST (07/21/2024 9:49 [...] chest CT in one year. 3. [facility] CT ORDERABLES Final Resu lt * CREATININE (07/21/2024 8:46 AM CDT) CREATININE 0.88 0.67 - 1.17 mg/dL 07/21/2024 9:19 AM CDT [facility] GFR >60 >=60 mL/min/1.7 3 sq meter 07/21/2024 9:19 AM CDT [facility] Comment:eGFR calculated with 2020 CKD-EPI equation. Vegetarian diet, extremely high or low muscle mass, and may affect results. Cystatin C with Glomerular Filtration Rate is a suitable alternative for these patients. Blood Venipuncture / Unknown 07/21/2024 8:46 AM CDT 07/21/2024 8:49 AM CDT [facility] CHEMISTRY ORDERABLES Final Result [id number] [address] [place] [id number] * XR CHEST PA AND LATERAL 2 VW (07/04/2024 12:10 PM CDT) Anatomical Region Laterality Modality Chest Computed Radiogr aphy 07/04/2024 12:1 0 PM CDT Impressions 07/05/2024 5:08 PM CDT IMPRESSION: See below. Exam: XR CHEST PA AND LATERAL 2 VW Date/Time of Exam: 07/04/2024 12:10 PM Reason For Exam: See Diagnosis. Diagnosis: Panlobular emphysema (CMS/HCC). Findings: Comparison: Plain film chest 06/22/2018 Heart size is normal without vascular congestion. Moderate COPD. No lobar consolidation, pleural for effusion or pneumothorax. There is a nodule overlying the lateral right midlung measuring 1.3 x 1.5 cm which may represent nipple shadow. No pleural fluid collection or pneumothorax. No acute osseous findings. IMPRESSION: 1. COPD with pulmonary nodule possibly nipple shadow overlying the right midlung. Follow-up CT chest recommended. Narrative Procedure Note Leroy Mora MD - 07/05/2024 IMPRESSION: See below. Exam: XR CHEST PA AND LATERAL 2 VW Date/Time of Exam: 07/04/2024 12:10 PM Reason For Exam: See Diagnosis. Diagnosis: Panlobular emphysema (CMS/HCC). Findings: Comparison: Plain film chest 06/22/2018 Heart size is normal without vascular congestion. Moderate COPD. No lobar consolidation, pleural for effusion or pneumothorax. There is a nodule overlying the lateral right midlung measuring 1.3 x 1.5 cm which may represent nipple shadow. No pleural fluid collection or pneumothorax. No acute osseous findings. IMPRESSION: 1. COPD with pulmonary nodule possibly nipple shadow overlying the right midlung. Follow-up CT chest recommended. Solislea Eladio Alvarez [facility] DIAGNOSTIC IMAGING ORDERAB LES Final Result * (ABNORMAL) CBC WITH DIFFERENTIAL (06/01/2024 2:52 PM CDT) WBC 7.5 3.8 - 10.8 Thousand/u L [facility] RBC 5.20 4.20 - 5.80 Million/uL [facility] HEMOGLOBIN 14.9 13.2 - 17.1 g/dL [facility] HEMATOCRIT 46.0 38.5 - 50.0 % [facility] MCV 88.5 80.0 - 100.0 fL [facility] MCH 28.7 27.0 - 33.0 pg [facility] MCHC 32.4 32.0 - 36.0 g/dL [facility] Comment: For adults, a slight decrease in the calculated MCHC value (in the range of 30 to 32 g/dL) is most likely not clinically significant; however, it should be interpreted with caution in correlation with other red cell parameters and the patient's clinical condition. RDW 12.8 11.0 - 15.0 % [facility] PLATELETS 186 140 - 400 Thousand/u L [facility] MPV 13.1(H) 7.5 - 12.5 fL [facility] NEUTROPHIL ABSOLUTE 5,408 1,500 - 7,800 cells/uL [facility] LYMPHOCYTE ABSOLUTE 1,313 850 - 3,900 cells/uL [facility] MONOCYTE ABSOLUTE 540 200 - 950 cells/uL [facility] EOSINOPHIL ABSOLUTE 143 15 - 500 cells/uL [facility] BASOPHILS ABSOLUTE 98 0 - 200 cells/uL [facility] NEUTROPHIL 72.1 % [facility] LYMPHOCYTES 17.5 % [facility] MONOCYTE 7.2 % [facility] EOSINOPHILS 1.9 % [facility] BASOPHILS 1.3 % [facility] Comment: FASTING:UNKNOWN FASTING: UNKNOWN Test Performed at: [facility] [id number] [place] [address] Courtney Castro MD Blood 06/01/2024 2:52 PM CDT 06/01/2024 2:53 PM CDT Archana Ayala DO HEMATOLOGY ORDERABLES Final Result [facility] [phone] [facility] [address] [place] [address] * TSH (06/01/2024 2:52 PM CDT) TSH 2.34 0.40 - 4.50 mIU/L [facility] Comment: FASTING:UNKNOWN FASTING: UNKNOWN Test Performed at: [facility] [id number] [facility] [address] Courtney Castro MD Blood 06/01/2024 2:52 PM CDT 06/01/2024 2:53 PM CDT Archana Luigi WalkerJamie DO CHEMISTRY ORDERABLES Final Result Performing Organization Address [facility]/ZIP Co de Phone Number [facility] [phone] [facility] [address] [facility] [place] [address] * (ABNORMAL) HEMOGLOBIN A1C (06/01/2024 2:52 PM CDT) HEMOGLOBIN A1C 10.2(H) <5.7 % of total Hgb [facility] Comment: For someone without known diabetes, a hemoglobin A1c value of 6.5% or greater indicates that they may have diabetes and this should be confirmed with a follow-up test. For someone with known diabetes, a value <7% indicates that their diabetes is well controlled and a value greater than or equal to 7% indicates suboptimal control. A1c targets should be individualized based on duration of diabetes, age, comorbid conditions, and other considerations. Currently, no consensus exists regarding use of hemoglobin A1c for diagnosis of diabetes for children. ESTIMATED AVERAGE GLUCOSE (MG/DL) 246 mg/dL [facility] ESTIMATED AVERAGE GLUCOSE (MMOL/L) 13.6 mmol/L [facility] Comment: FASTING:UNKNOWN FASTING: UNKNOWN Test Performed at: [facility] [id number] [place] [id number] Courtney Castro MD Blood 06/01/2024 2:52 PM CDT 06/01/2024 2:53 PM CDT us Archanaleyla Walkerehan DO CHEMISTRY ORDERABLES Final Result Performing Organization Address [facility]/ZIP Co de Phone Number [facility] [phone] [facility] [address] [place] [address] * (ABNORMAL) LIPID PANEL (06/01/2024 2:52 PM CDT) CHOLESTEROL 200(H) <200 mg/dL [facility] HDL 42 > OR = 40 mg/dL [facility] TRIGLYCERIDE 148 <150 mg/dL [facility] LDL CALCULATED 132(H) mg/dL (calc) [facility] Comment: Reference range: <100 Desirable range <100 mg/dL for primary prevention; <70 mg/dL for patients with CHD or diabetic patients with > or = 2 CHD risk factors. LDL-C is now calculated using the Erica calculation, which is a validated novel method providing better accuracy than the Friedewald equation in the estimation of LDL-C. Gerry GIORDANO et al. PATI. 2013;310(19): 9234-8432 (http://education.SPO/faq/XEE607) CHOL/HDL RATIO 4.8 <5.0 (calc) [facility] NON-HDL CHOLESTEROL 158(H) <130 mg/dL (calc) [facility] Comment: For patients with diabetes plus 1 major ASCVD risk factor, treating to a non-HDL-C goal of <100 mg/dL (LDL-C of <70 mg/dL) is considered a therapeutic option. Test Performed at: [facility] [id number] [place] [address] Courtney Castro MD Blood 06/01/2024 2:52 PM CDT 06/01/2024 2:53 PM CDT Archana Ayala DO CHEMISTRY ORDERABLES Final Result [facility] [phone] [facility] [address] [place] [address] * (ABNORMAL) MICROALBUMIN/CREATININE RATIO, RANDOM UR (05/27/2023 4:35 PM CDT) Creatinine, Urine 16(L) 20 - 320 mg/dL [facility] MICROALBUMIN, URINE 0.9 See Note: mg/dL [facility] Comment: Reference Range: Reference Range Not established MICROALBUMIN/CREAT RATIO, UR 56(H) <30 mg/g [facility] Comment: The ADA defines abnormalities in albumin excretion as follows: Albuminuria Category Result (mg/g creatinine) Normal to Mildly increased <30 Moderately increased 30-299 Severely increased > OR = 300 The ADA recommends that at least two of three specimens collected within a 3-6 month period be abnormal before considering a patient to be within a diagnostic category. Test Performed at: [facility] [id number] [email or web address] [address] Courtney Castro MD Urine URINE SPECIMEN OBTAINED BY CLEAN CATCH PROCEDURE / Unknown 05/27/2023 4:35 PM CDT 05/28/2023 5:08 AM CDT Archana Ayala DO URINE ORDERABLES Final Resu lt [facility] [phone] [facility] [address] [facility] [place] [address] * (ABNORMAL) DIABETES EYE EXAM (07/14/2021) us Abstract Provider HEALTH MAINTENANCE Edited Resu lt - Final * COLON CANCER SCREEN, STOOL DNA (05/14/2021 7:15 PM [employer]) COLOGUARD RESULT Negative Negative [facility] Comment: NEGATIVE TEST RESULT. A negative Cologuard result indicates a low likelihood that a colorectal cancer (CRC) or advanced adenoma (adenomatous polyps with more advanced pre-malignant features) is present. The chance that a person with a negative Cologuard test has a colorectal cancer is less than 1 in 1500 (negative predictive value >99.9%) or has an advanced adenoma is less than 5.3% (negative predictive value 94.7%). These data are based on a prospective cross-sectional study of 10,000 individuals at average risk for colorectal cancer who were screened with both Cologuard and colonoscopy. (Scott Valentine al, N Engl J Med 2014;370(14):8686-4217) The normal value (reference range) for this assay is negative. COLOGUARD RE-SCREENING RECOMMENDATION: Periodic colorectal cancer screening is an important part of preventive healthcare for asymptomatic individuals at average risk for colorectal cancer. Following a negative Cologuard result, the [place] [employer] Society and U.S. Multi-Society Task Force screening guidelines recommend a Cologuard re-screening interval of 3 years. References: [place] [employer] Guideline for Colorectal Cancer Screening: https://www.cancer.org/cancer/jhkjr-upmzsq-xenxwr/noczjykus-fcxbncizr-ufvytqh/ac s-rec ommendations.html.; Billy DK, Yuniel AVELAR, Hilary YangK, Colorectal Cancer Screening: Recommendations for Physicians and Patients from the U.S. Multi-Society Task Force on Colorectal Cancer Screening , Am J Gastroenterology 2017; 112:9665-3080. TEST DESCRIPTION: Composite algorithmic analysis of stool DNA-biomarkers with hemoglobin immunoassay. Quantitative values of individual biomarkers are not reportable and are not associated with individual biomarker result reference ranges. Cologuard is intended for colorectal cancer screening of adults of either sex, 45 years or older, who are at average-risk for colorectal cancer (CRC). Cologuard has been approved for use by the [place] FDA. The performance of Cologuard was established in a cross sectional study of average-risk adults aged 50-84. Cologuard performance in patients ages 45 to 49 years was estimated by sub-group analysis of near-age groups. Colonoscopies performed for a positive result may find as the most clinically significant lesion: colorectal cancer [4.0%], advanced adenoma (including sessile serrated polyps greater than or equal to 1cm diameter) [20%] or non- advanced adenoma [31%]; or no colorectal neoplasia [45%]. These estimates are derived from a prospective cross-sectional screening study of 10,000 individuals at average risk for colorectal cancer who were screened with both Cologuard and colonoscopy. (Scott Valentine al, N Engl J Med 2014;370(14):4131-1911.) Cologuard may produce a false negative or false positive result (no colorectal cancer or precancerous polyp present at colonoscopy follow up). A negative Cologuard test result does not guarantee the absence of CRC or advanced adenoma (pre-cancer). The current Cologuard screening interval is every 3 years. ([place] [employer] and U.S. Multi-Society Task Force). Cologuard performance data in a 10,000 patient pivotal study using colonoscopy as the reference method can be accessed at the following location: www.[employer]/results. Additional description of the Cologuard test process, warnings and precautions can be found at www.cologuard.com. Stool STOOL SPECIMEN / Unknown 05/14/2021 7:15 PM [employer] 05/15/2021 6:36 PM [employer] Archana Ayala DO BODY FLUIDS AND STOOLS [employer] CLIA # [id number] [address], [address] [place] [address] * DIABETES FOOT EXAM (10/24/2020) Archana Ayala DO HEALTH MAINTENANCE Edited R esult - Final from Last 3 Months or Most Recently Relevant to Health Maintenance Insurance MEDICAID [place] [facility] Care Teams Wet Primer Powder Blender Relationship Specialty Start Date End Date Archana Ayala DO [address] [place] [phone] PCP - General 05/27/20
--- OUTSIDE RECORDS SUMMARY | 2024-08-05 13:25 | XMS_ITS | Encounter Summary ---
Author Organization [facility] Address 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 [address] [place] [address] 11/07/2024 11:00 AM CDT Office Visit [facility] [address] [place] [address] Archana Ayala DO [address] [place] [phone] documented as of this encounter Visit Diagnoses Not on filedocumented in this encounter Care Teams Tank Driver Relationship Specialty Start Date End Date Archana Ayala DO [address] [place] [phone] PCP - General 05/27/20 documented as of this encounter
--- OUTSIDE RECORDS SUMMARY | 2024-08-05 13:25 | XMS_ITS | Encounter Summary ---
Author Organization [facility] Address 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 Gender Identity Not on file Sexual Orientation Not on file documented as of this encounter Plan of Treatment Upcoming Encounters Date Type Department Care Team (Late st Contact Info) Description 08/11/2024 1:00 PM CDT Office Visit [facility] [address] [facility] [place] [phone] Kim Florparker Hendricks, SERGING MACHINE OPERATOR AUT[employer] [address] [facility] [place] [phone] 11/07/2024 11:00 AM CDT Office Visit [facility] [address] [facility] [place] [phone] Archana Ayala DO [address] [place] [address] documented as of this encounter Procedures Procedure Name Priority Date/Time Associated Diagnosis Comments COMPREHENSIVE METABOLIC PANEL Routine 08/03/2024 10:14 AM CDT documented in this encounter Results * COMPREHENSIVE METABOLIC PANEL (08/03/2024 10:14 AM CDT) Blood us Abstract Provider CHEMISTRY ORDERABLES Final Res ult documented in this encounter Visit Diagnoses Not on filedocumented in this encounter Care Teams Morgue Technician Relationship Specialty Start Date End Date Archana Ayala DO [address] [place] [phone] PCP - General 05/27/20 documented as of this encounter
--- NOTE | 2024-08-05 14:13 | PM.DCS ---
Discharge Providers Date of Admission: 08/04/24 03:05 Date of Discharge: August 05, 2024 Attending Provider at Admission: Nathaniel Alvarez MD Attending Provider at Discharge: Jamie James MD Primary Care Provider: Archana Ayala DO Diagnoses at Discharge Discharge Diagnosis (1) Stroke: Status: Acute (2) Insulin dependent diabetes mellitus: Status: Acute (3) Hyperlipidemia: Status: Acute (4) Cachexia: Status: Acute Permanent problem details: BMI 14 (5) Tobacco abuse: Status: Acute (6) Acute CVA (cerebrovascular accident): Status: Acute (7) Protein calorie malnutrition: Status: Acute Reason for Visit Reason for Visit: left arm and leg numb sudden 1 hr high bp recently Hospital Course Hospital Course Sven Fuller is a 64 year old male with history of IDDM starting at age 27 is disabled lives alone. At 4 PM he noted left side was weaker and he was not walking well. Patient was admitted to [facility] for acute CVA Acute CVA - Left-sided weakness, paresthesias MRI brain MR/MR head wo con* [id number] IMPRESSION: 6.5 mm focus of restricted diffusion within the right posterolateral jarocho in keeping with acute infarction. Mild chronic small-vessel ischemic changes. head ct CT/CT head thrombolytic 07576 IMPRESSION: 1. No acute intracranial abnormality. CTA heand and neck 2. Acute right maxillary sinusitis changes. CT/CT angio headneck* [id number] IMPRESSION: 1. No acute large vessel occlusion identified. 2. 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 IMPRESSION: 1. No occlusion or significant stenosis. 2. Degenerative disc disease with suspected severe C5-C6 spinal canal stenosis. This can be further assessed by MRI for follow-up -Cardiac echocardiogram no evidence of intracardiac shunting -NIH stroke score 2 - Not a candidate for thrombolytics with low NIH stroke score - Patient was monitored as inpatient, received PT OT, speech therapy eval, permissive hypertension, aspirin, Plavix, statin - Overall patient's clinical condition improved, no significant left upper and left lower extremity weakness or paresthesias on discharge, no word finding difficulty, slurring of his words, no difficulty swallowing, no visual deficits - Will be discharged on aspirin, Plavix, statin - Discharged on instructions to monitor blood pressures closely, record them in a blood pressure log twice daily, bring them to primary care physician's office - Resume losartan tomorrow -Sent in clonidine for emergency use only for hypertensive urgency - If any recurrent strokelike symptoms please immediately call 911 - I have had a detailed discussion with patient about smoking cessation counseling, risk of strokes, morbidity and mortality associated, he voiced understanding, all questions answered, discharged with nicotine patch in place - Follow-up with neurology Patient was found to have a 2 mm infundibulum or small aneurysm at the right PCOM origin, will have him follow-up with neurology as outpatient Patient on examination was found to have also muscle wasting of palmar aspect of bilateral hands, bilateral Dupuytren's contracture, with his low BMI 14.8, I have recommended for him to follow-up with neurology as outpatient. As his constellation of symptoms protein, nutrition, low BMI, for evaluation of muscle wasting of palmar aspect of bilateral hands suspicious for ALS spectrum of diseases On CT imaging -suspected severe C5/6, spinal canal stenosis does report bilateral shoulder pain, neck pain. As she does have a history of rheumatoid arthritis - Discussed atlantoaxial instability, especially during intubation, he should notify any anesthesiologist before he has surgery of this - Will have him follow-up with Dr. Arboleda as outpatient For his severe protein, malnutrition, physical deconditioning - Discharged with instructions for protein shakes twice daily He was also found to have severe type 2 diabetes, hemoglobin A1c 9.9 - The morning of 08/05/2024 he did have a hypoglycemic episode of 32 after receiving 20 units of insulin the night of 08/04/2024 - His blood sugars have been reasonable this morning - He takes Lantus 20 units in the evening which he should continue - Discharged with insulin sliding scale - Discharged with hypoglycemic instructions as below - Please record your blood pressures and her blood pressure log twice daily and bring them to your primary care physician's office -Please monitor your blood sugars closely -Monitor your blood sugars 3 times daily as after meals -Please record your blood sugars, and a blood sugar log -For your NovoLog -Please inject blood sugar after meals based on sliding scale provided -Do not inject insulin if you do not eat as hypoglycemia kills -This is a NovoLog sliding scale -Insulin sliding ?fingerstick? Insulin ?141-180?0 units/sq 181-220?2 units/sq ?221-260?4 units/sq ?261-300 6 units/sq ?301-350?8 units/sq ?351-400 10 units/sq ?401-450?12 units/sq >450? 14units/sq -If your blood sugar is greater than 500 go to the emergency room -If your blood sugar is less than 60 or at anytime you feel lightheaded or dizzy or diaphoretic or have chest palpitations check your blood sugar, and eat a hard candy or drink orange juice and go immediately to the emergency room -Remember hypoglycemia kills, so if his blood sugar is less than 60 we have to increase it by taking in a sugary meal such as a hard candy or orange juice and go to the emergency room -If you have any questions please call us where here to help - If you have any recurrent strokelike symptoms please call 911 - Wear event monitor as prescribed - Follow-up with Dr. Arboleda for your C5/C6 neck disease - Please use clonidine as needed for hypertensive urgency - If your systolic blood pressures greater than 180 or diastolic is greater than 100 please use clonidine as prescribed Physical Exam Const: COMMON NORMALS: no acute distress and patient oriented x3 Resp: COMMON NORMALS: normal respiratory effort, No retractions, No use of accessory muscles and clear to auscultation bilaterally AUSCULTATION: clear to auscultation bilaterally Cardio: COMMON NORMALS: regular rate, regular rhythm, S1 normal heart sound present and S2 normal heart sound present RATE: regular rate RHYTHM: regular rhythm HEART SOUNDS: S1 normal heart sound present and S2 normal heart sound present GI: COMMON NORMALS: Normal to inspection, nondistended, normoactive bowel sounds present and non-tender Extremity: COMMON NORMALS: no pedal edema Neuro: COMMON NORMALS: patient oriented x3, CN's II-XII intact bilaterally and moves all extremities Psych: COMMON NORMALS: mental status grossly normal Discharge Data Studies Completed and Pending Completed Studies During Hospitalization Category Date Time Status CT angio headneck* [id number] Stat Cat Scan 08/03/24 20:[address] head thrombolytic [id number] Stat Cat Scan 08/03/24 20:05 Completed MR head wo con* [id number] Stat MRI 08/04/24 00:10 Completed CV. echo lmt wo/w bubble [id number] Routine Ultrasound 08/05/24 11:56 Completed US carotid duplex bilateral [CV carotid duplex BI* Ultrasound 08/04/24 00:10 Completed [id number]] Stat Pending at discharge Category Date Time Status Basic Metabolic Panel AM LABS Lab 08/06/24 04:00 Ordered Basic Metabolic Panel AM LABS Lab 08/07/24 04:00 Ordered Complete Blood Count w/Auto AM LABS Lab 08/06/24 04:00 Ordered Complete Blood Count w/Auto AM LABS Lab 08/07/24 04:00 Ordered Radiology Impressions Head/Neck CTA 08/03/24 20:04 IMPRESSION: 1. No acute large vessel occlusion identified. 2. 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 IMPRESSION: 1. No occlusion or significant stenosis. 2. Degenerative disc disease with suspected severe C5-C6 spinal canal stenosis. This can be further assessed by MRI for follow-up. COMMENTS: Consistent with the [place] [employer]'s Incidental Findings Committee white paper (J Am Deana Radiol 2015): In patients aged 35 years and older with an incidental thyroid nodule equal to or greater than 1.[address], MRI or extrathyroidal US, further evaluation with dedicated thyroid US is recommended for patients with normal life expectancy and without comorbidities. For smaller nodules without suspicious features, no further evaluation or follow up is recommended. REFERENCES: NASCET CRITERIA. The degree of stenosis in the cervical segment of the internal carotid artery is based on NASCET criteria. Normal is no stenosis. Mild is less than 50% stenosis. Moderate is 50-69% stenosis. Severe is 70% to 99% stenosis. Total occlusion is no detectable patent lumen. ADDENDUM: 08/03/242110 THIS REPORT CONTAINS FINDINGS THAT MAY BE CRITICAL TO PATIENT CARE. The findings were verbally communicated via telephone conference with NELLA Marroquin at 9:05 PM CDT on 08/03/2024. The findings were acknowledged and understood. Head CT 08/03/24 20:05 IMPRESSION: 1. No acute intracranial abnormality. 2. Acute right maxillary sinusitis changes. ASSESSMENT: ASPECTS ([place] Stroke Program Early CT Score) is 10. ADDENDUM: 08/03/242029 Findings were discussed with NELLA Marroquin at 08/03/2024 8:28 PM CDT. Carotid Doppler Study 08/04/24 00:10 IMPRESSION: No significant carotid arterial stenosis. REFERENCES: SRU CRITERIA. The degree of internal carotid artery stenosis is based on criteria defined by the Society of Radiologists in Ultrasound (SRU). Normal is no stenosis. Mild is less than 50% stenosis. Moderate is 50-69% stenosis. Severe is greater than 69% stenosis to near occlusion. Near occlusion is a markedly narrowed lumen. Total occlusion is no detectable patent lumen. Head MRI 08/04/24 00:10 IMPRESSION: 6.5 mm focus of restricted diffusion within the right posterolateral jarocho in keeping with acute infarction. Mild chronic small-vessel ischemic changes. ADDENDUM: 08/04/24 [id number] COMMENT: THIS REPORT CONTAINS FINDINGS THAT MAY BE CRITICAL TO PATIENT CARE. The exam findings were verbally communicated by me to Nathaniel Alvarez via telephone conference at 7:51 AM CDT on 08/04/2024. The findings were acknowledged and understood. Laboratory Results WBC 4.44 10^3/uL (3.29-11.43) 08/05/24 04:55 RBC 4.34 10^6/uL (3.85-5.65) 08/05/24 04:55 Hgb 12.40 g/dL (11.27-16.99) 08/05/24 04:55 Hct 37.9 % (37-53) 08/05/24 04:55 MCV 87.3 fl (82-101) 08/05/24 04:55 MCH 28.6 pg (27-33) 08/05/24 04:55 MCHC 32.7 g/dL (30-55) 08/05/24 04:55 RDW 12.6 % (12.1-15.1) 08/05/24 04:55 Plt Count 145 10^3/cmm (157-399) L 08/05/24 04:55 MPV 11.6 fL (7.4-10.4) H 08/05/24 04:55 Neut % (Auto) 59.4 % 08/05/24 04:55 Lymph % (Auto) 25.2 % 08/05/24 04:55 [place] % (Auto) 12.4 % 08/05/24 04:55 Eos % (Auto) 0.9 % 08/05/24 04:55 Baso % (Auto) 1.4 % 08/05/24 04:55 Neut # (Auto) 2.64 10^3/uL (1.8-7.7) 08/05/24 04:55 Lymph # (Auto) 1.1 10^3/uL (0.8-4.8) 08/05/24 04:55 [place] # (Auto) 0.6 10^3/uL (0.2-0.9) 08/05/24 04:55 Eos # (Auto) 0.0 10^3/uL (0.0-0.8) 08/05/24 04:55 Baso # (Auto) 0.1 10^3/uL (0.0-0.1) 08/05/24 04:55 Nucleated RBC % (auto) 0 % 08/05/24 04:55 Nucleated RBCs # 0.0 /100WBC 08/05/24 04:55 PT 11.90 SECONDS (12.1-14.9) L 08/03/24 20:04 INR 0.82 (0.8-1.2) 08/03/24 20:04 APTT 26.4 SECONDS (23.9-36.7) 08/03/24 20:04 Sodium 138 mmol/L (136-145) 08/05/24 04:55 Potassium 3.6 mmol/L (3.5-5.1) 08/05/24 04:55 Chloride 102 mmol/L (98-107) 08/05/24 04:55 Carbon Dioxide 27 mmol/L (22-29) 08/05/24 04:55 Anion Gap 12.6 (5-19) 08/05/24 04:55 BUN 26 mg/dL (8-23) H 08/05/24 04:55 Creatinine 0.9 mg/dL (0.7-1.2) 08/05/24 04:55 GFR Calculation 85.2 mL/min (90-130) L 08/05/24 04:55 Glucose 32 mg/dL (65-115) L* 08/05/24 04:55 POC Glucose 276 mg/dL (70-110) H 08/05/24 11:02 Estimat Average Glucose 237 08/03/24 20:04 Hemoglobin A1c 9.9 % (4.0-6.0) H 08/03/24 20:04 Calculated Osmolality 287 mOsm/kg (285-295) 08/05/24 04:55 Calcium 9.1 mg/dL (8.5-10.5) 08/05/24 04:55 Total Bilirubin 0.4 mg/dL (0.15-1.2) 08/03/24 20:04 AST 13 U/L (0-40) 08/03/24 20:04 ALT 11 U/L (0-41) 08/03/24 20:04 Alkaline Phosphatase 140 U/L (40-130) H 08/03/24 20:04 Total Protein 7.0 g/dL (6.6-8.7) 08/03/24 20:04 Albumin 4.0 g/dL (3.5-5.2) 08/03/24 20:04 Globulin 3.0 g/dL (1.3-4.6) 08/03/24 20:04 Urine Color Yellow (Yellow) 08/03/24 20:46 Urine Appearance Clear (CLEAR) 08/03/24 20:46 Urine pH 6.5 (5-7) 08/03/24 20:46 Ur Specific Ferdinand 1.070 (1.005-1.030) H 08/03/24 20:46 Urine Protein Trace (Negative) A 08/03/24 20:46 Urine Glucose (UA) 2+ (Normal) H 08/03/24 20:46 Urine Ketones Negative (Negative) 08/03/24 20:46 Urine Blood Negative (Negative) 08/03/24 20:46 Urine Nitrate Negative (Negative) 08/03/24 20:46 Urine Bilirubin Negative (Negative) 08/03/24 20:46 Urine Urobilinogen 1.0 mg/dL (Negative) 08/03/24 20:46 Ur Leukocyte Esterase Negative (Negative) 08/03/24 20:46 Urine RBC 0-2 /hpf (0-2) 08/03/24 20:46 Urine WBC 0-5 /hpf (0-5) 08/03/24 20:46 Ur Squamous Epith Cells 0-5 /hpf (0-5) 08/03/24 20:46 Amorphous Sediment Not Reportable 08/03/24 20:46 Urine Bacteria None seen /hpf (NONE) 08/03/24 20:46 Hyaline Casts 3.30 /lpf 08/03/24 20:46 Urine Opiates Screen Negative ng/mL (Negative) 08/03/24 20:46 Ur Barbiturates Screen Negative ng/mL (Negative) 08/03/24 20:46 Ur Phencyclidine Scrn Negative ng/mL (Negative) 08/03/24 20:46 Ur Amphetamines Screen Negative ng/mL (Negative) 08/03/24 20:46 U Benzodiazepines Scrn Negative ng/mL (Negative) 08/03/24 20:46 Urine Cocaine Screen Negative ng/mL (Negative) 08/03/24 20:46 U Marijuana (THC) Screen Negative ng/mL (Negative) 08/03/24 20:46 Hepatitis A IgM Ab Non-reactive (Nonreactive) 08/03/24 20:04 Hep Bs Antigen Non-reactive (Nonreactive) 08/03/24 20:04 Hep B Core IgM Ab Non-reactive (Nonreactive) 08/03/24 20:04 Hepatitis C Antibody Non-reactive (Nonreactive) 08/03/24 20:04 HIV 1&2 Ab & HIV 1 Ag Non-reactive (Non-Reactiv) 08/03/24 20:04 HIV 1&2 Antibody Non-reactive (Non-Reactiv) 08/03/24 20:04 Vitals Last Vital Signs Temp 97.8 F 08/05/24 11:55 Pulse 88 08/05/24 11:55 Resp 18 08/05/24 11:55 BP 157/74 08/05/24 11:55 Pulse Ox 98 08/05/24 11:55 O2 Del Method Room Air 08/05/24 11:55 Discharge Plan Discharge Patient Disposition: Home Condition: Stable Prescriptions: New atorvastatin 40 mg Tablet 40 mg PO BEDTIME 30 Days Qty: 30 0RF insulin lispro [Humalog U-100 Insulin] 100 unit/mL Solution See Rx Instructions .ROUTE .COMPLEX Qty: 10 0RF Rx Instructions: Inject, subcut, 3 times daily, after meals, based on low-dose insulin sliding scale glucagon HCl [Glucagon (HCl) Emergency Kit] 1 mg recon soln 1 mg IM Q20M PRN (Reason: hypoglycemia) Qty: 1 0RF Rx Instructions: until target blood sugar attained clonidine HCl 0.1 mg tablet 0.1 mg PO BID PRN (Reason: hypertensive emergency) 30 Days Qty: 60 0RF Rx Instructions: For SBP greater than 180 or DBP greater than 100 clopidogrel [Plavix] 75 mg tablet 75 mg PO DAILY 20 Days Qty: 20 0RF nicotine 21 mg/24 hr patch 24 hour 1 patch transdermal DAILY 28 Days Qty: 28 0RF Continued hydroxychloroquine 200 mg tablet 200 mg PO DAILY Qty: 90 1RF leflunomide 20 mg tablet 20 mg PO DAILY Qty: 90 1RF prednisone 5 mg tablet 5 mg PO DAILY Qty: 90 1RF losartan 25 mg tablet 25 mg PO DAILY fluoxetine 20 mg capsule 40 mg PO DAILY tadalafil 5 mg tablet 5 mg PO DAILY PRN (Reason: Erectile Dysfunction) Enbrel SureClick 50 mg/mL (1 mL) pen injector 50 mg SUBCUT Q7D aspirin [Adult Aspirin Regimen] 81 mg tablet,delayed release (DR/EC) 81 mg PO DAILY 30 Days Qty: 30 0RF Changed insulin degludec 200 unit/mL (3 mL) insulin pen 20 unit SUBCUT QPM 30 Days Qty: 3 0RF Discontinued ibuprofen 800 mg Tablet 800 mg PO Q6H PRN (Reason: Pain) Discharge Orders: Discharge Order (Routine); Ordered 08/05/24 Ordered By: Jamie James Other Ambulatory Orders: Physical Therapy Eval and Treat Outpatient (Order) Timeframe: 3 Days Facility: [facility] - Location: Physical Therapy [facility] Ordered By: Jamie James MCT/Event Monitor 30 Days (Routine) Timeframe: 1 Day Facility: [facility] - Location: Radiology Ordered By: Jamie James Referrals: [facility] Outpatient Therapy [Outside] Referral Note: Request has been placed for you to have OP Therapy @ [facility]. We have notified the Outpatient Therapy Clinic of the need for a follow-up appointment to be scheduled. If you have not heard from them within the next 2 business days, please call them directly. Doreen Dorman MD [Physician, Neurology] - 2 weeks Referral Note: cva We have notified your physician's clinic of the need for a follow-up appointment to be scheduled. If you have not heard from them within the next 2 business days, please call them directly. Robert Arboleda DO [Physician, Orthopedics] - 2 weeks Referral Note: c5-c6 disease, rheumatoid We have notified your physician's clinic of the need for a follow-up appointment to be scheduled. If you have not heard from them within the next 2 business days, please call them directly. Umair Bruno M.D [Physician, Cardiology] - 1 month Referral Note: event monitor Archana Ayala DO [Primary Care Provider, Family Practice] Referral Note: please reach out to you doctors office for a follow up apt within 4-7 days Discharge Diet: Cardiac Discharge Activity: Resume usual activity Patient Instructions: Glucagon (By injection), Atorvastatin (By mouth), Clopidogrel (By mouth) (Plavix), Insulin Regular (By injection) (Novolin R, Humulin R, Humulin R..., Clonidine Hydrochloride (By mouth), Ischemic Stroke (DC), Opioid Safety, Stroke Stoplight Activity Restrictions/Additional Instructions: - Please record your blood pressures and her blood pressure log twice daily and bring them to your primary care physician's office -Please monitor your blood sugars closely -Monitor your blood sugars 3 times daily as after meals -Please record your blood sugars, and a blood sugar log -For your NovoLog -Please inject blood sugar after meals based on sliding scale provided -Do not inject insulin if you do not eat as hypoglycemia kills -This is a NovoLog sliding scale -Insulin sliding ?fingerstick? Insulin ?141-180?0 units/sq 181-220?2 units/sq ?221-260?4 units/sq ?261-300 6 units/sq ?301-350?8 units/sq ?351-400 10 units/sq ?401-450?12 units/sq >450? 14units/sq -If your blood sugar is greater than 500 go to the emergency room -If your blood sugar is less than 60 or at anytime you feel lightheaded or dizzy or diaphoretic or have chest palpitations check your blood sugar, and eat a hard candy or drink orange juice and go immediately to the emergency room -Remember hypoglycemia kills, so if his blood sugar is less than 60 we have to increase it by taking in a sugary meal such as a hard candy or orange juice and go to the emergency room -If you have any questions please call us where here to help - If you have any recurrent strokelike symptoms please call 911 - Wear event monitor as prescribed - Follow-up with Dr. Arboleda for your C5/C6 neck disease - Please use clonidine as needed for hypertensive urgency - If your systolic blood pressures greater than 180 or diastolic is greater than 100 please use clonidine as prescribed Discharge Attestations Time Spent in Discharge Care*: greater than 30 min Quality Metrics Clinical Quality Measures [ Cerebrovascular Accident { Contraindication to Antithrombotic: None; antithrombotic prescribed; Contraindication to Anticoagulation: Overlap treatment not indicated; Contraindication to Statin: None; Statin prescribed;}. No reported AMI, CVA or VTE this stay] Coding Level of Care Code 74860 Total time (in minutes) for Discharge: 45 Diagnoses Stroke I63.9 Insulin dependent diabetes mellitus Hyperlipidemia E78.5 Cachexia R64 Tobacco abuse Z72.0 Acute CVA (cerebrovascular accident) I63.9 Protein calorie malnutrition E46
== END 2024-08-05 13:55 | disposition home or self-care (01) | DRG 64 ==
LOC: ER 08-04 00:06 → ER IP 08-04 07:37 → MEDSURG 08-04 15:28 → ER IP 08-05 13:23
PROVIDERS: Admitting Provider Internal Medicine; Emergency Provider Student in an Organized Health Care Education/Training Program; PCP Family Medicine; Visit Provider Family Medicine
DX: I63.89 Other cerebral infarction (principal); E43 Unspecified severe protein-calorie malnutrition; G81.94 Hemiplegia, unspecified affecting left nondominant side; Z68.1 Body mass index [BMI] 19.9 or less, adult; R20.2 Paresthesia of skin; E10.9 Type 1 diabetes mellitus without complications; E78.00 Pure hypercholesterolemia, unspecified; F17.210 Nicotine dependence, cigarettes, uncomplicated; M48.02 Spinal stenosis, cervical region; M25.512 Pain in left shoulder; M25.511 Pain in right shoulder; M05.9 Rheumatoid arthritis with rheumatoid factor, unspecified; Z79.4 Long term (current) use of insulin; Z79.02 Long term (current) use of antithrombotics/antiplatelets; Z79.82 Long term (current) use of aspirin
CPT/HCPCS: 36415; 36416; 70450; 70496; 70498; 70551; 80048; 80053; 80074; 80306; 81001; 82962; 83036; 85025; 85610; 85730; 87806; 93005; 93880; 96372; 97116; 97161; 97165; C8924; J1650; J1815; J7512; J7799; J9999

== ENCOUNTER 2024-08-06 05:00 | Outpatient (RCR) | payer MEDICARE, MEDICAID, SELFPAY | END 2024-09-04 23:59 | disposition home or self-care (01) | LOC: MPT 05:00 | PROVIDERS: PCP Family Medicine; Visit Provider Family Medicine | DX: I63.9 Cerebral infarction, unspecified (principal) | CPT/HCPCS: 97110; 97112; 97162 ==

== ENCOUNTER → 2024-08-15 15:47 | Outpatient (BNVA) | payer MEDICARE, MEDICAID, SELFPAY | PROVIDERS: PCP Family Medicine; Visit Provider Orthopaedic Surgery | DX: M54.2 Cervicalgia (principal); Z09 Encounter for follow-up examination after completed treatment for conditions other than malignant neoplasm | CPT/HCPCS: 72050; 99203 ==

== ENCOUNTER 2024-08-24 10:42 | Outpatient (CLI) | payer MEDICARE, MEDICAID, SELFPAY ==
--- NOTE | 2024-08-24 11:00 | MR_ITS ---
WS: [id number] MRI CERVICAL SPINE NONCONTRAST HISTORY: neck pain, RIGHT shoulder pain. No injury. COMPARISON: None available. Technique: Multiplanar, multisequence noncontrast imaging of the cervical spine. Mild increase in the cervical lordosis. Ventral cervical cord is being displaced at C5-6 level due to a large central disc protrusion. Cord is being deformed. No cord edema is evident. Craniocervical junction, C1 and C2 relationship, odontoid process and soft tissues are normal. Bilateral mucous retention cysts in the floors of the maxillary sinuses. C2-C3: Mild osteophytic ridging. No stenosis. C3-C4: No stenosis. C4-C5: Mild osteophytic ridging with disc bulging. Small central disc protrusion. Mild effacement of ventral CSF. Mild facet arthritis. Mild central and bilateral foraminal stenosis. C5-C6: Moderate size central disc protrusion deforms and contacts the ventral cord. Effacement of CSF. Osteophytic ridging and facet joint arthritis contributing to moderate bilateral foraminal stenosis. C6-C7: Very mild osteophytic ridging with disc bulging. Mild foraminal stenosis. C7-T1: Normal. Paraspinal soft tissue are normal. MR/MR cervical spin wo con* [id number] IMPRESSION: 1. Moderate size central disc protrusion at C5-6 contacts and deforms the vent ral cord. Disc protrusion resulting in central stenosis. Moderate bilateral for aminal stenosis at the C5-6 level due to disc and osteophyte disease. 2. C6-7: Mild foraminal stenosis. 3. C4-5: Small central disc protrusion with osteophytic ridging. Mild central and bilateral foraminal stenosis.
== END 2024-08-24 10:43 | disposition home or self-care (01) ==
PROVIDERS: PCP Family Medicine; Visit Provider Orthopaedic Surgery
DX: M50.222 Other cervical disc displacement at C5-C6 level (principal); M48.02 Spinal stenosis, cervical region; M25.78 Osteophyte, vertebrae
CPT/HCPCS: 72141

== ENCOUNTER → 2024-08-29 13:23 | Outpatient (BNVA) | payer MEDICARE, MEDICAID, SELFPAY | PROVIDERS: PCP Family Medicine; Visit Provider Orthopaedic Surgery | DX: Z09 Encounter for follow-up examination after completed treatment for conditions other than malignant neoplasm (principal); M50.222 Other cervical disc displacement at C5-C6 level | CPT/HCPCS: 99213 ==

== ENCOUNTER → 2024-10-26 13:33 | Outpatient (BNVA) | payer MEDICARE, MEDICAID, SELFPAY | PROVIDERS: PCP Family Medicine; Referring Provider Family Medicine; Visit Provider Nurse Practitioner | DX: I63.9 Cerebral infarction, unspecified (principal) | CPT/HCPCS: 99213 ==